=== PATIENT | male | born 1960 | race Caucasian/White ===

== ENCOUNTER 2016-07-01 09:51 | Emergency (ER) | payer OTHER ==
[~2016-07-01] VITALS: Ht 175.2 cm; Wt 84.4 kg
[~2016-07-01 09:51] MED LIST: ACYCLOVIR800 MG PO; ALBUTEROL0.09 MG/A2 IH; ALBUTEROL0.09 MG/A2 INH; ALBUTEROL2.5 MG/0.5 INH; ANAPROX DS550 MG PO; ASPIRIN325 MG PO; BENADRYL ALLERG25 M5 PO; BENADRYL25 MG PO; CATAPRES-TTS 10.1 MG PO; CLINDAMYCIN HC300 MG PO; EES400 MG PO; HYDRODIURIL25 MG PO; LOVASTATIN10 MG PO; NYSTATIN100000 U/M PO; PREDNICOT20 MG PO; PREDNISONE20 M1 PO; PROBIOTIC PO; PYRIDIUM200 MG PO; VIBRAMYCIN100 MG PO; VICODIN ES 7501 TAB PO; ZANTAC 150150 MG PO; ZITHROMAX250 MG PO; Zestril,Prinivi40 MG PO
[2016-07-01 10:20] LABS: BASO % 0.7 % (0.0-1.0); EOS # 0.1 10*3/uL (0.0-0.4); EOS % 0.9 % (1.0-4.0); HEMATOCRIT 47.2 % (42.0-52.0); HEMOGLOBIN 16.4 g/dl (14.0-18.0); LYMPH # 1.2 10*3/uL (1.3-4.4); MEAN CELL VOLUME 95.5 fl (80.0-94.0); MEAN CORPUSCULAR HGB 33.2 pg (27.0-31.0); MEAN CORPUSCULAR HGB CONC 34.7 g/dl (33.0-37.0); MEAN PLATELET VOLUME 10.2 fl (9.6-12.3); MONO # 0.4 10*3/uL (0.1-1.0); MONO % 7.6 % (3.0-9.0); NEUT # 3.8 10*3/uL (2.3-7.9); NEUT % 68.6 % (47.0-73.0); PLATELET COUNT AUTOMATED 142 10*3/uL (130-400); RED BLOOD COUNT 4.94 10*6/uL (4.50-5.90); RED CELL DISTRI WIDTH 12.8 % (0-14.5); WHITE BLOOD COUNT 5.5 10*3/uL (4.8-10.8)
[2016-07-01 10:31] LABS: PROTHROMBIN TIME 10.8 SECONDS (9.0-12.4)
[2016-07-01 10:35] LABS: ALBUMIN 4.3 gm/dl (3.1-4.5); ALKALINE PHOSPHATASE 83 U/L (45-117); BILIRUBIN, TOTAL 0.5 mg/dl (0.2-1.0); BUN 11 mg/dl (7-24); CARBON DIOXIDE 29 mmol/L (21-32); CHLORIDE 103 mmol/L (98-107); CPK 240 U/L (39-308); EST GLOM FILT AFRICAN AMERICAN > 60 ml/min; GLUCOSE 105 mg/dL (65-99); MAGNESIUM 2.3 mg/dL (1.5-2.1); POTASSIUM 4.2 mmol/L (3.5-5.1); SGOT/AST 37 IU/L (3-35); SGPT/ALT 59 U/L (12-78); SODIUM 142 mmol/L (136-145); TOTAL PROTEIN 7.7 gm/dL (6.4-8.2)
[2016-07-01 10:39] LABS: C-REACTIVE PROTEIN < 0.29 MG/DL (0-0.3); TROPONIN I < 0.015 ng/ml (<0.045)
== END 2016-07-01 12:12 | disposition left against medical advice (07) ==
LOC: ED 09:51
PROVIDERS: Student in an Organized Health Care Education/Training Program
DX: R55 Syncope and collapse (principal); R00.2 Palpitations; Z95.0 Presence of cardiac pacemaker; Z79.82 Long term (current) use of aspirin; Z88.1 Allergy status to other antibiotic agents; Z88.2 Allergy status to sulfonamides

== ENCOUNTER 2016-07-12 17:49 | Emergency (ER) | payer OTHER ==
[~2016-07-12] VITALS: Ht 175.2 cm; Wt 81.6 kg
--- NOTE | ~2016-07-12 | EKG ---
[place], [place] ELECTROCARDIOGRAM REPORT NAME: GALILEA COPE UNIT #: [id number] ROOM: DOCTOR: YAAKOV KNIGHT MD BIRTHDATE: [birth year] DOS: 07/12/2016 FINDINGS: 1. Normal sinus rhythm at rate 96. 2. Possible left atrial enlargement. 3. Lateral ST segment depression. 4. Abnormal electrocardiogram. YAAKOV KNIGHT MD CM:EKGRPT:ELECTROCARDIOGRAM REPORT [id number] 0000 YAAKOV KNIGHT MD
[2016-07-12] MEDS ORDERED: CATAPRES-TTS 10.1 MG PO (18:21)
[2016-07-12 18:40] LABS: BASO % 0.6 % (0.0-1.0); EOS # 0.1 10*3/uL (0.0-0.4); EOS % 1.4 % (1.0-4.0); HEMATOCRIT 48.3 % (42.0-52.0); HEMOGLOBIN 16.9 g/dl (14.0-18.0); LYMPH % 28.4 % (27.0-41.0); MEAN CELL VOLUME 94.9 fl (80.0-94.0); MEAN CORPUSCULAR HGB 33.2 pg (27.0-31.0); MEAN PLATELET VOLUME 10.5 fl (9.6-12.3); MONO # 0.5 10*3/uL (0.1-1.0); MONO % 7.5 % (3.0-9.0); NEUT # 4.5 10*3/uL (2.3-7.9); NEUT % 61.8 % (47.0-73.0); PLATELET COUNT AUTOMATED 177 10*3/uL (130-400); RED BLOOD COUNT 5.09 10*6/uL (4.50-5.90); RED CELL DISTRI WIDTH 12.6 % (0-14.5); WHITE BLOOD COUNT 7.2 10*3/uL (4.8-10.8)
[2016-07-12 18:48] LABS: PROTHROMBIN TIME 10.7 SECONDS (9.0-12.4)
[2016-07-12 18:56] LABS: ALBUMIN 4.1 gm/dl (3.1-4.5); ALKALINE PHOSPHATASE 77 U/L (45-117); BILIRUBIN, TOTAL 0.6 mg/dl (0.2-1.0); BUN 19 mg/dl (7-24); C-REACTIVE PROTEIN < 0.29 MG/DL (0-0.3); CARBON DIOXIDE 26 mmol/L (21-32); CHLORIDE 105 mmol/L (98-107); CPK 176 U/L (39-308); EST GLOM FILT AFRICAN AMERICAN > 60 ml/min; GLUCOSE 126 mg/dL (65-99); MAGNESIUM 2.5 mg/dL (1.5-2.1); POTASSIUM 3.4 mmol/L (3.5-5.1); SGOT/AST 31 IU/L (3-35); SGPT/ALT 55 U/L (12-78); SODIUM 142 mmol/L (136-145); TOTAL PROTEIN 7.3 gm/dL (6.4-8.2); TROPONIN I < 0.015 ng/ml (<0.045)
== END 2016-07-12 19:45 | disposition left against medical advice (07) ==
LOC: ED 17:49
PROVIDERS: Student in an Organized Health Care Education/Training Program
DX: R07.9 Chest pain, unspecified (principal); I10 Essential (primary) hypertension; Z88.1 Allergy status to other antibiotic agents; Z88.2 Allergy status to sulfonamides; Z79.82 Long term (current) use of aspirin; Z95.0 Presence of cardiac pacemaker

== ENCOUNTER → 2016-11-14 | Outpatient (CLI) | payer OTHER ==
[~2016-11-14] MED LIST changes: +CLONIDINE1 EAC1 T; +PROVENTIL HFA6.7 GM INH
--- NOTE | ~2016-11-14 | ST ---
[place], [place] EXERCISE STRESS TEST REPORT [id number] UN[facility] #: [id number] ROOM: DOCTOR: ZINA REVELES MD BIRTHDATE: [birth year] DOS: 11/14/2016 LEXISCAN PORTION OF THE LEXISCAN CARDIOLITE Baseline cardiogram, sinus rhythm with poor R-wave progression in the anterior leads with nonspecific ST-T changes, 0.4 mg Lexiscan, duration of 10 seconds. No new EKG changes with Lexiscan. No chest pain with Lexiscan. Mild ST depression is present in the inferior leads. Blood pressure and heart rate response was normal. Nuclear images will be reported separately. ZINA REVELES MD CM:STRESS:EXERCISE STRESS TEST REPORT [id number] ZINA REVELES MD
--- NOTE | 2016-11-14 07:00 | NUR ---
INFORMED CONSENT OBTAINED FOR LEXISCAN NUCLEAR STRESS TEST WITH DR. REVELES. RESTING EKG ATRIAL PACED WITH A RESTING HR OF 60 WITH BP OF 120/54. LUNGS CLEAR WITH SPO2 OF 99% ON ROOM AIR. PT COMPLETED A 1:00 LEXISCAN PROTOCOL RECEIVING LEXISCAN 0.4 MG IV OVER 10 SECONDS. HAD NO CHEST PAIN WITH NONDIAGNOSTIC ST CHANGES. HAD C/O "EXCITED FEELING" THAT SUBSIDED IN RECOVERY. HAD A PEAK HR OF 82 WITH BP OF 132/88. LAST RECOVERY HR OF 78 WITH BP OF 130/80. AWAITING SCANNING IN STABLE CONDITION.
== END | disposition home or self-care (01) ==
LOC: CARD 03:31
DX: R07.9 Chest pain, unspecified (principal); R53.81 Other malaise

== ENCOUNTER 2017-05-04 08:39 | Emergency (ER) | payer OTHER ==
[~2017-05-04] VITALS: Ht 175.2 cm; Wt 81.6 kg
[2017-05-04 09:33] LABS: BASO # 0.1 10*3/uL (0.0-0.1); BASO % 0.9 % (0.0-1.0); EOS # 0.1 10*3/uL (0.0-0.4); EOS % 1.4 % (1.0-4.0); HEMATOCRIT 47.3 % (42.0-52.0); HEMOGLOBIN 16.2 g/dl (14.0-18.0); LYMPH # 1.6 10*3/uL (1.3-4.4); LYMPH % 28.3 % (27.0-41.0); MEAN CELL VOLUME 95.9 fl (80.0-94.0); MEAN CORPUSCULAR HGB 32.9 pg (27.0-31.0); MEAN CORPUSCULAR HGB CONC 34.2 g/dl (33.0-37.0); MEAN PLATELET VOLUME 10.7 fl (9.6-12.3); MONO # 0.5 10*3/uL (0.1-1.0); MONO % 9.4 % (3.0-9.0); NEUT # 3.4 10*3/uL (2.3-7.9); NEUT % 59.8 % (47.0-73.0); PLATELET COUNT AUTOMATED 158 10*3/uL (130-400); RED BLOOD COUNT 4.93 10*6/uL (4.50-5.90); RED CELL DISTRI WIDTH 12.4 % (0-14.5); WHITE BLOOD COUNT 5.7 10*3/uL (4.8-10.8)
[2017-05-04 09:47] LABS: ACT PARTIAL THROMBO TIME 24.9 SECONDS (20.8-31.5)
[2017-05-04 09:50] LABS: ALBUMIN 3.8 gm/dl (3.1-4.5); ALKALINE PHOSPHATASE 74 U/L (45-117); BUN 20 mg/dl (7-24); CHLORIDE 105 mmol/L (98-107); CREATININE 0.88 mg/dL (0.70-1.30); LIPASE 210 U/L (73-393); SGOT/AST 21 IU/L (3-35); SGPT/ALT 38 U/L (12-78); SODIUM 140 mmol/L (136-145); TOTAL PROTEIN 7.2 gm/dL (6.4-8.2)
[2017-05-04 09:52] LABS: TROPONIN I < 0.015 ng/ml (<0.045)
== END 2017-05-04 11:38 | disposition left against medical advice (07) ==
LOC: ED 08:39
PROVIDERS: Emergency Medicine
DX: R00.2 Palpitations (principal); I10 Essential (primary) hypertension; Z88.1 Allergy status to other antibiotic agents; Z88.2 Allergy status to sulfonamides; Z88.8 Allergy status to other drugs, medicaments and biological substances; Z79.82 Long term (current) use of aspirin; Z79.899 Other long term (current) drug therapy

== ENCOUNTER 2017-05-08 19:04 | Inpatient (IN) | payer OTHER ==
[~2017-05-08] VITALS: Ht 175.2 cm; Wt 83.5 kg
[2017-05-08 19:13] VITALS: BP 147/82
[2017-05-08 19:28] LABS: BASO # 0.1 10*3/uL (0.0-0.1); BASO % 0.6 % (0.0-1.0); EOS # 0.1 10*3/uL (0.0-0.4); EOS % 1.2 % (1.0-4.0); HEMATOCRIT 47.8 % (42.0-52.0); HEMOGLOBIN 16.2 g/dl (14.0-18.0); LYMPH # 2.7 10*3/uL (1.3-4.4); LYMPH % 32.2 % (27.0-41.0); MEAN CELL VOLUME 95.2 fl (80.0-94.0); MEAN CORPUSCULAR HGB 32.3 pg (27.0-31.0); MEAN CORPUSCULAR HGB CONC 33.9 g/dl (33.0-37.0); MEAN PLATELET VOLUME 10.6 fl (9.6-12.3); MONO # 0.6 10*3/uL (0.1-1.0); MONO % 7.5 % (3.0-9.0); NEUT # 4.9 10*3/uL (2.3-7.9); NEUT % 58.4 % (47.0-73.0); PLATELET COUNT AUTOMATED 171 10*3/uL (130-400); RED BLOOD COUNT 5.02 10*6/uL (4.50-5.90); RED CELL DISTRI WIDTH 12.2 % (0-14.5); WHITE BLOOD COUNT 8.4 10*3/uL (4.8-10.8)
[2017-05-08 19:40] LABS: ACT PARTIAL THROMBO TIME 25.4 SECONDS (20.8-31.5)
[2017-05-08 19:45] VITALS: BP 128/82
[2017-05-08 19:48] LABS: ALBUMIN 3.9 gm/dl (3.1-4.5); ALKALINE PHOSPHATASE 75 U/L (45-117); BUN 19 mg/dl (7-24); CHLORIDE 103 mmol/L (98-107); CREATININE 1.43 mg/dL (0.70-1.30); POTASSIUM 4.1 mmol/L (3.5-5.1); SGOT/AST 26 IU/L (3-35); SGPT/ALT 45 U/L (12-78); SODIUM 140 mmol/L (136-145); TOTAL PROTEIN 7.2 gm/dL (6.4-8.2)
[2017-05-08 19:49] LABS: TROPONIN I < 0.015 ng/ml (<0.045)
[2017-05-08 20:16] VITALS: BP 122/72
[2017-05-08 21:00] VITALS: BP 170/88
[2017-05-09] VITALS: BP 125/93
[2017-05-09 04:36] LABS: BASO % 0.7 % (0.0-1.0); EOS # 0.1 10*3/uL (0.0-0.4); EOS % 2.3 % (1.0-4.0); HEMOGLOBIN 14.9 g/dl (14.0-18.0); LYMPH # 2.1 10*3/uL (1.3-4.4); LYMPH % 38.1 % (27.0-41.0); MEAN CELL VOLUME 95.9 fl (80.0-94.0); MEAN CORPUSCULAR HGB 32.5 pg (27.0-31.0); MEAN CORPUSCULAR HGB CONC 33.9 g/dl (33.0-37.0); MEAN PLATELET VOLUME 10.6 fl (9.6-12.3); MONO # 0.5 10*3/uL (0.1-1.0); MONO % 8.6 % (3.0-9.0); NEUT # 2.8 10*3/uL (2.3-7.9); NEUT % 50.1 % (47.0-73.0); PLATELET COUNT AUTOMATED 137 10*3/uL (130-400); RED BLOOD COUNT 4.59 10*6/uL (4.50-5.90); RED CELL DISTRI WIDTH 12.3 % (0-14.5); WHITE BLOOD COUNT 5.6 10*3/uL (4.8-10.8)
[2017-05-09 05:07] LABS: ALBUMIN 3.4 gm/dl (3.1-4.5); ALKALINE PHOSPHATASE 65 U/L (45-117); BUN 18 mg/dl (7-24); CHLORIDE 105 mmol/L (98-107); CHOLESTEROL 172 mg/dL (<200); CREATININE 0.99 mg/dL (0.70-1.30); HDL CHOLESTEROL 42 mg/dl (40-60); LDL CHOLESTEROL 112 mg/dL (9-159); POTASSIUM 3.9 mmol/L (3.5-5.1); SGOT/AST 23 IU/L (3-35); SGPT/ALT 41 U/L (12-78); SODIUM 143 mmol/L (136-145); TOTAL PROTEIN 6.1 gm/dL (6.4-8.2); TRIGLYCERIDES 89 mg/dl (<150); VLDL CHOLESTEROL 18 mg/dL (6-40)
== END 2017-05-09 05:43 | disposition left against medical advice (07) | DRG 308 ==
LOC: ED 19:04 → 5E 19:59 → EDHOLD 19:59 → 5E 20:21
PROVIDERS: Family Medicine Adult Medicine; Student in an Organized Health Care Education/Training Program
DX: R00.2 Palpitations (principal); N17.0 Acute kidney failure with tubular necrosis; I44.2 Atrioventricular block, complete; K57.50 Diverticulosis of both small and large intestine without perforation or abscess without bleeding; R58 Hemorrhage, not elsewhere classified; I10 Essential (primary) hypertension; E78.00 Pure hypercholesterolemia, unspecified; Z53.21 Procedure and treatment not carried out due to patient leaving prior to being seen by health care provider; E83.41 Hypermagnesemia; J45.30 Mild persistent asthma, uncomplicated; E66.3 Overweight; Z68.27 Body mass index [BMI] 27.0-27.9, adult; Z88.1 Allergy status to other antibiotic agents; Z88.2 Allergy status to sulfonamides; Z88.8 Allergy status to other drugs, medicaments and biological substances; Z95.0 Presence of cardiac pacemaker; Z79.82 Long term (current) use of aspirin; Z79.51 Long term (current) use of inhaled steroids; Z79.899 Other long term (current) drug therapy

== ENCOUNTER 2017-07-21 17:09 | Emergency (ER) | payer OTHER ==
[~2017-07-21] VITALS: Wt 84.8 kg
[2017-07-21 17:40] LABS: BASO % 0.6 % (0.0-1.0); EOS # 0.1 10*3/uL (0.0-0.4); EOS % 1.5 % (1.0-4.0); HEMATOCRIT 44.6 % (42.0-52.0); HEMOGLOBIN 14.9 g/dl (14.0-18.0); LYMPH # 1.4 10*3/uL (1.3-4.4); LYMPH % 27.3 % (27.0-41.0); MEAN CORPUSCULAR HGB 32.4 pg (27.0-31.0); MEAN CORPUSCULAR HGB CONC 33.4 g/dl (33.0-37.0); MEAN PLATELET VOLUME 10.8 fl (9.6-12.3); MONO # 0.5 10*3/uL (0.1-1.0); NEUT # 3.2 10*3/uL (2.3-7.9); NEUT % 61.4 % (47.0-73.0); PLATELET COUNT AUTOMATED 134 10*3/uL (130-400); RED CELL DISTRI WIDTH 13.2 % (0-14.5); WHITE BLOOD COUNT 5.2 10*3/uL (4.8-10.8)
[2017-07-21 17:49] LABS: ACT PARTIAL THROMBO TIME 25.3 SECONDS (20.8-31.5)
[2017-07-21 17:58] LABS: ALBUMIN 3.9 gm/dl (3.1-4.5); ALKALINE PHOSPHATASE 74 U/L (45-117); BUN 18 mg/dl (7-24); CHLORIDE 108 mmol/L (98-107); CREATININE 0.95 mg/dL (0.70-1.30); POTASSIUM 3.8 mmol/L (3.5-5.1); SGOT/AST 22 IU/L (3-35); SGPT/ALT 42 U/L (12-78); SODIUM 139 mmol/L (136-145); TOTAL PROTEIN 6.9 gm/dL (6.4-8.2)
[2017-07-21 18:02] LABS: TROPONIN I < 0.015 ng/ml (<0.045)
== END 2017-07-21 18:51 | disposition home or self-care (01) ==
LOC: ED 17:09
PROVIDERS: Nurse Practitioner Family
DX: R51 Headache (principal); J45.909 Unspecified asthma, uncomplicated; I10 Essential (primary) hypertension; E78.00 Pure hypercholesterolemia, unspecified; E66.3 Overweight; Z68.29 Body mass index [BMI] 29.0-29.9, adult; Z95.0 Presence of cardiac pacemaker; Z79.82 Long term (current) use of aspirin; Z87.891 Personal history of nicotine dependence; Z79.899 Other long term (current) drug therapy; Z88.1 Allergy status to other antibiotic agents; Z88.8 Allergy status to other drugs, medicaments and biological substances

== ENCOUNTER → 2017-08-17 | Outpatient (CLI) | payer OTHER | END | disposition home or self-care (01) | LOC: US 08-15 14:00 | DX: I10 Essential (primary) hypertension (principal) ==

== ENCOUNTER 2017-08-19 21:11 | Emergency (ER) | payer OTHER ==
[~2017-08-19] VITALS: Ht 175.2 cm; Wt 81.6 kg
[2017-08-19 21:45] LABS: HEMOGLOBIN 15.3 g/dl (14.0-18.0); MEAN CELL VOLUME 96.8 fl (80.0-94.0); MEAN CORPUSCULAR HGB 32.9 pg (27.0-31.0); MEAN PLATELET VOLUME 10.8 fl (9.6-12.3); PLATELET COUNT AUTOMATED 148 10*3/uL (130-400); RED BLOOD COUNT 4.65 10*6/uL (4.50-5.90); RED CELL DISTRI WIDTH 13.2 % (0-14.5); WHITE BLOOD COUNT 6.3 10*3/uL (4.8-10.8)
[2017-08-19 21:53] LABS: INTERNATIONAL NORM RATIO 0.9 (2.0-3.5)
[2017-08-19 22:08] LABS: ALBUMIN 3.6 gm/dl (3.1-4.5); ALKALINE PHOSPHATASE 80 U/L (45-117); BUN 15 mg/dl (7-24); CHLORIDE 104 mmol/L (98-107); CREATININE 0.91 mg/dL (0.70-1.30); POTASSIUM 3.7 mmol/L (3.5-5.1); SGOT/AST 23 IU/L (3-35); SGPT/ALT 39 U/L (12-78); SODIUM 141 mmol/L (136-145); TOTAL PROTEIN 6.7 gm/dL (6.4-8.2)
[2017-08-19 22:09] LABS: TROPONIN I < 0.015 ng/ml (<0.045)
[2017-08-19 22:20] LABS: ATYPICAL LYMPHS 3 % (0-0); TOTAL CELLS COUNTED 100 #CELLS
[2017-08-19 22:21] LABS: PLATELET SUFFICIENCY LOW (NORMAL); POLYCHROMASIA SLIGHT
== END 2017-08-20 01:11 | disposition home or self-care (01) ==
LOC: ED 21:11
PROVIDERS: Emergency Medicine
DX: S29.012A Strain of muscle and tendon of back wall of thorax, initial encounter (principal); J45.909 Unspecified asthma, uncomplicated; E78.00 Pure hypercholesterolemia, unspecified; I10 Essential (primary) hypertension; E66.3 Overweight; Z68.29 Body mass index [BMI] 29.0-29.9, adult; Z95.0 Presence of cardiac pacemaker; Z87.891 Personal history of nicotine dependence; Z79.82 Long term (current) use of aspirin; Z79.899 Other long term (current) drug therapy; Z88.1 Allergy status to other antibiotic agents; Z88.8 Allergy status to other drugs, medicaments and biological substances; X58.XXXA Exposure to other specified factors, initial encounter; Y93.89 Activity, other specified; Y92.89 Other specified places as the place of occurrence of the external cause; Y99.9 Unspecified external cause status

== ENCOUNTER → 2017-08-22 | Outpatient (CLI) | payer OTHER | LOC: US 08:01 | DX: I10 Essential (primary) hypertension (principal) ==

== ENCOUNTER 2017-10-24 06:11 | Emergency (ER) | payer OTHER ==
[~2017-10-24] VITALS: Ht 175.2 cm; Wt 81.2 kg
[2017-10-24] MEDS ORDERED: ASPIR LOW81 MG PO (06:18)
[2017-10-24] MEDS ORDERED: B12,B-12,B 12500 MC1 PO (06:25)
[2017-10-24] MEDS ORDERED: GARLIC1000 M1 PO (06:27)
[2017-10-24] MEDS ORDERED: FISH OIL CONC1000 M2 PO (06:28)
[2017-10-24] MEDS ORDERED: BENADRYL ALLERG25 M5 PO (07:10)
== END 2017-10-24 08:28 | disposition home or self-care (01) ==
LOC: ED 06:11
DX: T63.441A Toxic effect of venom of bees, accidental (unintentional), initial encounter (principal); M79.89 Other specified soft tissue disorders; I10 Essential (primary) hypertension; E78.00 Pure hypercholesterolemia, unspecified; Z87.891 Personal history of nicotine dependence; Z88.1 Allergy status to other antibiotic agents; Z88.8 Allergy status to other drugs, medicaments and biological substances; Z79.899 Other long term (current) drug therapy; Z79.82 Long term (current) use of aspirin; Y92.89 Other specified places as the place of occurrence of the external cause

== ENCOUNTER 2017-10-29 07:22 | Emergency (ER) | payer OTHER ==
[~2017-10-29] VITALS: Ht 175.2 cm; Wt 81.2 kg
[~2017-10-29 07:22] MED LIST changes: +ASPIR LOW81 MG PO; +B12,B-12,B 12500 MC1 PO; +FISH OIL CONC1000 M2 PO; +GARLIC1000 M1 PO
[2017-10-29] MEDS ORDERED: MEDROL DOSEPAK4 MG PO (07:44)
[2017-10-29] MEDS ORDERED: PEPCID20 MG PO (07:44)
== END 2017-10-29 08:30 | disposition home or self-care (01) ==
LOC: ED 07:22
DX: K14.8 Other diseases of tongue (principal); T78.3XXA Angioneurotic edema, initial encounter; J45.909 Unspecified asthma, uncomplicated; I10 Essential (primary) hypertension; E66.3 Overweight; Z68.29 Body mass index [BMI] 29.0-29.9, adult; Z95.0 Presence of cardiac pacemaker; Z87.891 Personal history of nicotine dependence; Z79.899 Other long term (current) drug therapy; Z79.82 Long term (current) use of aspirin; Z88.1 Allergy status to other antibiotic agents; Z88.3 Allergy status to other anti-infective agents; Z88.8 Allergy status to other drugs, medicaments and biological substances; Y92.9 Unspecified place or not applicable

== ENCOUNTER 2017-11-27 20:12 | Emergency (ER) | payer OTHER ==
[~2017-11-27] VITALS: Ht 175.2 cm; Wt 84.4 kg
--- NOTE | ~2017-11-27 | EKG ---
[place], [place] ELECTROCARDIOGRAM REPORT NAME: GALILEA COPE UNIT #: [id number] ROOM: DOCTOR: EPIPHANY DRAFT REPORT BIRTHDATE: [birth year] [facility] Test Date: 2017-11-27 Test Time: 20:31:46 Pat Name: GALILEA COPE Department: Room: Gender: Tariff Clerk: Carolyn Hernández : 1960 Requested By: GABRIEL VALENTIN Order Number: [id number] Reading MD: Adela Inman MD Measurements Intervals [place] Rate: 71 P: 13 [place]: 183 QRS: 57 QRSD: 89 T: 79 QT: 378 QTc: 411 Interpretive Statements Sinus rhythm Electronically Signed On 11-28-2017 13:45:01 PDT by Adela Inman MD CM:EKGRPT:ELECTROCARDIOGRAM REPORT 30 1345 GABRIEL VALENTIN EPIPHANY DRAFT REPORT GABRIEL VALENTIN
[~2017-11-27 20:12] MED LIST changes: +MEDROL DOSEPAK4 MG PO; +PEPCID20 MG PO
[2017-11-27 20:38] LABS: BASO % 0.3 % (0.0-1.0); EOS # 0.1 10*3/uL (0.0-0.4); EOS % 0.9 % (1.0-4.0); HEMATOCRIT 45.9 % (42.0-52.0); HEMOGLOBIN 15.4 g/dl (14.0-18.0); LYMPH # 1.7 10*3/uL (1.3-4.4); LYMPH % 25.7 % (27.0-41.0); MEAN CELL VOLUME 97.9 fl (80.0-94.0); MEAN CORPUSCULAR HGB 32.8 pg (27.0-31.0); MEAN CORPUSCULAR HGB CONC 33.6 g/dl (33.0-37.0); MEAN PLATELET VOLUME 10.6 fl (9.6-12.3); MONO # 0.5 10*3/uL (0.1-1.0); MONO % 7.9 % (3.0-9.0); NEUT # 4.2 10*3/uL (2.3-7.9); NEUT % 64.9 % (47.0-73.0); PLATELET COUNT AUTOMATED 144 10*3/uL (130-400); RED BLOOD COUNT 4.69 10*6/uL (4.50-5.90); RED CELL DISTRI WIDTH 12.9 % (0-14.5); WHITE BLOOD COUNT 6.5 10*3/uL (4.8-10.8)
[2017-11-27 20:54] LABS: BILIRUBIN NEGATIVE (NEGATIVE); BLOOD NEGATIVE (NEGATIVE); CLARITY CLEAR (CLEAR); COLOR YELLOW (YELLOW); GLUCOSE NEGATIVE (NEGATIVE); KETONE TRACE (NEGATIVE); LEUKO ESTERASE NEGATIVE (NEGATIVE); NITRITE NEGATIVE (NEGATIVE); SPECIFIC GRAVITY <= 1.005 (1.005-1.030); UROBILINOGEN 0.2 E.U./dl (0.2-1.0)
[2017-11-27 20:56] LABS: ALBUMIN 4.1 gm/dl (3.1-4.5); BUN 13 mg/dl (7-24); CHLORIDE 105 mmol/L (98-107); CREATININE 0.96 mg/dL (0.70-1.30); POTASSIUM 3.9 mmol/L (3.5-5.1); SGOT/AST 25 IU/L (3-35); SGPT/ALT 38 U/L (12-78); SODIUM 139 mmol/L (136-145); TOTAL PROTEIN 7.4 gm/dL (6.4-8.2)
[2017-11-27 20:58] LABS: ALKALINE PHOSPHATASE 63 U/L (45-117)
[2017-11-27 21:00] LABS: ACT PARTIAL THROMBO TIME 24.6 SECONDS (20.8-31.5)
[2017-11-27 21:01] LABS: TROPONIN I < 0.015 ng/ml (<0.045)
[2017-11-27 21:28] LABS: WBC 0-2 wbc/hpf (0-5)
== END 2017-11-27 21:49 | disposition left against medical advice (07) ==
LOC: ED 20:12
PROVIDERS: Nurse Practitioner Family
DX: R07.9 Chest pain, unspecified (principal); R51 Headache; Z88.1 Allergy status to other antibiotic agents; Z88.5 Allergy status to narcotic agent; Z88.2 Allergy status to sulfonamides; Z79.82 Long term (current) use of aspirin; Z79.899 Other long term (current) drug therapy

== ENCOUNTER 2017-12-20 23:54 | Inpatient (IN) | payer OTHER ==
[~2017-12-20] VITALS: Ht 175.2 cm; Wt 80.3 kg
--- NOTE | ~2017-12-20 | EKG ---
[place], [place] ELECTROCARDIOGRAM REPORT NAME: GALILEA COPE UNIT #: [id number] ROOM: [facility] DOCTOR: CHERYL DRAFT REPORT BIRTHDATE: [birth year] [facility] Test Date: 2017-12-21 Test Time: 02:51:03 Pat Name: GALILEA COPE Department: Room: [facility] Gender: M Echo Technologist: : 1960 Requested By: PRIMO GUTIERREZ Order Number: [id number] Reading MD: Sukhdeep James MD Measurements Intervals [place] Rate: 61 P: [place]: 208 QRS: 59 QRSD: 89 T: 76 QT: 396 QTc: 399 Interpretive Statements Atrial-paced rhythm Baseline wander in lead(s) I,II,aVR Compared to ECG 11/27/2017 20:31:46 Sinus rhythm no longer present Electronically Signed On 12-23-2017 4:08:52 PDT by Sukhdeep James MD CM:EKGRPT:ELECTROCARDIOGRAM REPORT [id number] 0408 PRIMO GUTIERREZ MD EPIPHANY DRAFT REPORT PRIMO GUTIERREZ MD
--- NOTE | ~2017-12-20 | EKG ---
[place], [place] ELECTROCARDIOGRAM REPORT NAME: GALILEA COPE UNIT #: [id number] ROOM: [facility] DOCTOR: EPIPHANY DRAFT REPORT BIRTHDATE: [birth year] [facility] Test Date: 2017-12-21 Test Time: 06:50:59 Pat Name: GALILEA COPE Department: Room: [facility] Gender: M Salt Maker: Deb Ray : 1960 Requested By: PRIMO GUTIERREZ Order Number: [id number] Reading MD: Sukhdeep James MD Measurements Intervals [place] Rate: 63 P: [place]: 190 QRS: 84 QRSD: 91 T: 47 QT: 402 QTc: 412 Interpretive Statements Atrial-paced rhythm Low voltage, extremity leads Anteroseptal infarct, old Compared to ECG 11/27/2017 20:31:46 Low QRS voltage now present Myocardial infarct finding now present Sinus rhythm no longer present Electronically Signed On 12-23-2017 4:09:06 PDT by Sukhdeep James MD CM:EKGRPT:ELECTROCARDIOGRAM REPORT [id number] 0409 PRIMO GUTIERREZ MD EPIPHANY DRAFT REPORT PRIMO GUTIERREZ MD
--- NOTE | ~2017-12-20 | EKG ---
[place], [place] ELECTROCARDIOGRAM REPORT NAME: GALILEA COPE UNIT #: [id number] ROOM: [facility] DOCTOR: SURESHANY DRAFT REPORT BIRTHDATE: [birth year] [facility] Test Date: 2017-12-20 Test Time: 23:55:45 Pat Name: GALILEA COPE Department: Room: [facility] Gender: M Strip Picker: : 1960 Requested By: PRIMO GUTIERREZ Order Number: [id number] Reading MD: Sukhdeep James MD Measurements Intervals [place] Rate: 72 P: [place]: 183 QRS: 55 QRSD: 91 T: 56 QT: 366 QTc: 401 Interpretive Statements sinys Sinus rhythm Anteroseptal infarct, old Compared to ECG 11/27/2017 20:31:46 Myocardial infarct finding now present Sinus rhythm no longer present Electronically Signed On 12-23-2017 4:08:40 PDT by Sukhdeep James MD CM:EKGRPT:ELECTROCARDIOGRAM REPORT [id number] PRIMO GUTIERREZ MD EPIPHANY DRAFT REPORT PRIMO GUTIERREZ MD
[2017-12-20 23:55] VITALS: BP 132/87
[2017-12-21] MEDS ORDERED: FUROSEMIDE20 M1 PO (00:16)
[2017-12-21] MEDS ORDERED: 'CLONIDINE0.1 MG PO (00:16)
[2017-12-21] MEDS ORDERED: VITAMIN B121000 MC1 SL (00:17)
[2017-12-21] MEDS ORDERED: FISH OIL 1,0001 EAC4 PO (00:18)
[2017-12-21] MEDS ORDERED: ZYRTEC10 MG PO (00:18)
[2017-12-21] MEDS ORDERED: ODORLESS GARLI300 MG PO (00:18)
[2017-12-21 00:21] LABS: BASO % 0.8 % (0.0-1.0); EOS # 0.1 10*3/uL (0.0-0.4); HEMATOCRIT 43.1 % (42.0-52.0); HEMOGLOBIN 14.9 g/dl (14.0-18.0); LYMPH # 1.7 10*3/uL (1.3-4.4); LYMPH % 35.7 % (27.0-41.0); MEAN CELL VOLUME 96.9 fl (80.0-94.0); MEAN CORPUSCULAR HGB 33.5 pg (27.0-31.0); MEAN CORPUSCULAR HGB CONC 34.6 g/dl (33.0-37.0); MEAN PLATELET VOLUME 10.7 fl (9.6-12.3); MONO # 0.4 10*3/uL (0.1-1.0); MONO % 8.9 % (3.0-9.0); NEUT # 2.4 10*3/uL (2.3-7.9); NEUT % 51.2 % (47.0-73.0); PLATELET COUNT AUTOMATED 137 10*3/uL (130-400); RED BLOOD COUNT 4.45 10*6/uL (4.50-5.90); RED CELL DISTRI WIDTH 12.8 % (0-14.5); WHITE BLOOD COUNT 4.7 10*3/uL (4.8-10.8)
[2017-12-21 00:30] LABS: ACT PARTIAL THROMBO TIME 25.5 SECONDS (20.8-31.5)
[2017-12-21 00:33] VITALS: BP 1110/79
[2017-12-21 00:37] LABS: ALBUMIN 3.9 gm/dl (3.1-4.5); ALKALINE PHOSPHATASE 67 U/L (45-117); BUN 10 mg/dl (7-24); CHLORIDE 106 mmol/L (98-107); CREATININE 0.85 mg/dL (0.70-1.30); POTASSIUM 3.7 mmol/L (3.5-5.1); SGOT/AST 22 IU/L (3-35); SGPT/ALT 34 U/L (12-78); SODIUM 141 mmol/L (136-145); TOTAL PROTEIN 6.6 gm/dL (6.4-8.2)
[2017-12-21 00:38] LABS: TROPONIN I < 0.015 ng/ml (<0.045)
[2017-12-21 01:56] VITALS: BP 112/80; BP 118/68; BP 138/96
[2017-12-21] MEDS ORDERED: VITAMIN C500 M4 PO (02:43)
[2017-12-21 06:22] LABS: ALBUMIN 3.6 gm/dl (3.1-4.5); ALKALINE PHOSPHATASE 64 U/L (45-117); BUN 10 mg/dl (7-24); CHLORIDE 108 mmol/L (98-107); CHOLESTEROL 178 mg/dL (<200); CREATININE 0.82 mg/dL (0.70-1.30); HDL CHOLESTEROL 46 mg/dl (40-60); LDL CHOLESTEROL 117 mg/dL (9-159); PHOSPHOROUS 3.8 mg/dL (2.5-4.9); POTASSIUM 3.9 mmol/L (3.5-5.1); SGOT/AST 21 IU/L (3-35); SGPT/ALT 32 U/L (12-78); SODIUM 143 mmol/L (136-145); TOTAL PROTEIN 6.3 gm/dL (6.4-8.2); TRIGLYCERIDES 75 mg/dl (<150); VLDL CHOLESTEROL 15 mg/dL (6-40)
[2017-12-21 06:26] LABS: BASO % 0.9 % (0.0-1.0); EOS # 0.1 10*3/uL (0.0-0.4); EOS % 2.8 % (1.0-4.0); HEMATOCRIT 44.2 % (42.0-52.0); HEMOGLOBIN 14.8 g/dl (14.0-18.0); LYMPH # 1.7 10*3/uL (1.3-4.4); LYMPH % 36.1 % (27.0-41.0); MEAN CELL VOLUME 98.9 fl (80.0-94.0); MEAN CORPUSCULAR HGB 33.1 pg (27.0-31.0); MEAN CORPUSCULAR HGB CONC 33.5 g/dl (33.0-37.0); MEAN PLATELET VOLUME 11.1 fl (9.6-12.3); MONO # 0.4 10*3/uL (0.1-1.0); MONO % 9.1 % (3.0-9.0); NEUT # 2.4 10*3/uL (2.3-7.9); NEUT % 50.9 % (47.0-73.0); PLATELET COUNT AUTOMATED 145 10*3/uL (130-400); RED BLOOD COUNT 4.47 10*6/uL (4.50-5.90); RED CELL DISTRI WIDTH 12.8 % (0-14.5); WHITE BLOOD COUNT 4.6 10*3/uL (4.8-10.8)
[2017-12-21 07:28] LABS: VITAMIN D, 25-HYDROXY 31.1 ng/mL (30-100)
== END 2017-12-21 07:00 | disposition left against medical advice (07) | DRG 313 ==
LOC: ED 23:54 → EDHOLD 12-21 01:32 → 5E 12-21 01:37
PROVIDERS: Emergency Medicine Emergency Medical Services; Internal Medicine
DX: R07.9 Chest pain, unspecified (principal); I44.2 Atrioventricular block, complete; Z68.26 Body mass index [BMI] 26.0-26.9, adult; E78.00 Pure hypercholesterolemia, unspecified; I10 Essential (primary) hypertension; J45.20 Mild intermittent asthma, uncomplicated; E66.3 Overweight; E53.8 Deficiency of other specified B group vitamins; D75.89 Other specified diseases of blood and blood-forming organs; K57.90 Diverticulosis of intestine, part unspecified, without perforation or abscess without bleeding; E78.5 Hyperlipidemia, unspecified; Z53.21 Procedure and treatment not carried out due to patient leaving prior to being seen by health care provider; E83.41 Hypermagnesemia; R73.9 Hyperglycemia, unspecified; Z60.2 Problems related to living alone; Z88.8 Allergy status to other drugs, medicaments and biological substances; Z88.2 Allergy status to sulfonamides; Z79.899 Other long term (current) drug therapy; Z87.891 Personal history of nicotine dependence; Z95.0 Presence of cardiac pacemaker; Z79.82 Long term (current) use of aspirin; Z85.828 Personal history of other malignant neoplasm of skin; Z82.49 Family history of ischemic heart disease and other diseases of the circulatory system; Z83.3 Family history of diabetes mellitus; Z80.8 Family history of malignant neoplasm of other organs or systems

== ENCOUNTER → 2018-02-13 | Outpatient (CLI) | payer OTHER ==
[~2018-02-13] MED LIST changes: +'CLONIDINE0.1 MG PO; +FISH OIL 1,0001 EAC4 PO; +FUROSEMIDE20 M1 PO; +ODORLESS GARLI300 MG PO; +VITAMIN B121000 MC1 SL; +VITAMIN C500 M4 PO; +ZYRTEC10 MG PO
== END | disposition home or self-care (01) ==
LOC: D 14:45
DX: I10 Essential (primary) hypertension (principal); E78.5 Hyperlipidemia, unspecified

== ENCOUNTER 2018-04-07 16:42 | Emergency (ER) | payer OTHER ==
[~2018-04-07] VITALS: Ht 175.2 cm; Wt 79.4 kg
--- NOTE | ~2018-04-07 | EKG ---
[place], [place] ELECTROCARDIOGRAM REPORT NAME: GALILEA COPE UNIT #: [id number] ROOM: DOCTOR: EPIPHANY DRAFT REPORT BIRTHDATE: [birth year] [facility] Test Date: 2018-04-07 Test Time: 16:42:22 Pat Name: GALILEA COPE Department: Room: [facility] Gender: M Residential Mental Health Worker: Nuha Patel : 1960 Requested By: CHAVA BARKER Order Number: [id number] Reading MD: Sukhdeep James MD Measurements Intervals [place] Rate: 80 P: 52 [place]: 184 QRS: 71 QRSD: 93 T: 93 QT: 358 QTc: 413 Interpretive Statements Sinus rhythm Probable left atrial enlargement Anteroseptal infarct, old Nonspecific T abnormalities, lateral leads Compared to ECG 12/21/2017 06:50:59 T-wave abnormality now present Atrial-paced complex(es) or rhythm no longer present Ventricular-paced complex(es) or rhythm no longer present Myocardial infarct finding still present Electronically Signed On 04-08-2018 9:26:48 PST by Sukhdeep James MD CM:EKGRPT:ELECTROCARDIOGRAM REPORT [id number] 0926 CHAVA LUNA DRAFT REPORT CHAVA BARKER M.D.
[2018-04-07 17:13] LABS: BASO % 0.6 % (0.0-1.0); EOS # 0.1 10*3/uL (0.0-0.4); EOS % 1.4 % (1.0-4.0); HEMATOCRIT 47.3 % (42.0-52.0); LYMPH # 1.8 10*3/uL (1.3-4.4); LYMPH % 25.7 % (27.0-41.0); MEAN CELL VOLUME 97.5 fl (80.0-94.0); MEAN CORPUSCULAR HGB CONC 33.8 g/dl (33.0-37.0); MEAN PLATELET VOLUME 10.2 fl (9.6-12.3); MONO # 0.7 10*3/uL (0.1-1.0); MONO % 9.3 % (3.0-9.0); NEUT # 4.5 10*3/uL (2.3-7.9); NEUT % 62.9 % (47.0-73.0); PLATELET COUNT AUTOMATED 148 10*3/uL (130-400); RED BLOOD COUNT 4.85 10*6/uL (4.50-5.90); WHITE BLOOD COUNT 7.1 10*3/uL (4.8-10.8)
[2018-04-07 17:35] LABS: ALBUMIN 3.9 gm/dl (3.1-4.5); ALKALINE PHOSPHATASE 68 U/L (45-117); BUN 13 mg/dl (7-24); CHLORIDE 107 mmol/L (98-107); CREATININE 0.92 mg/dL (0.70-1.30); SGOT/AST 32 IU/L (3-35); SGPT/ALT 48 U/L (12-78); SODIUM 139 mmol/L (136-145); TOTAL PROTEIN 6.9 gm/dL (6.4-8.2)
[2018-04-07 17:37] LABS: TROPONIN I < 0.015 ng/ml (<0.045)
== END 2018-04-07 18:14 | disposition home or self-care (01) ==
LOC: ED 16:42
PROVIDERS: Family Medicine
DX: R00.2 Palpitations (principal); R51 Headache; M79.602 Pain in left arm; J45.909 Unspecified asthma, uncomplicated; E78.00 Pure hypercholesterolemia, unspecified; I10 Essential (primary) hypertension; Z95.0 Presence of cardiac pacemaker; Z87.891 Personal history of nicotine dependence; Z88.8 Allergy status to other drugs, medicaments and biological substances; Z88.1 Allergy status to other antibiotic agents; Z88.2 Allergy status to sulfonamides

== ENCOUNTER → 2018-04-08 | Outpatient (CLI) | payer OTHER ==
--- NOTE | ~2018-04-08 | HM ---
[place], [place] HOLTER MONITOR REPORT NAME: GALILEA COPE UNIT #: [id number] ROOM: DOCTOR: ABDIRIZAK CAR,ZINA BIRTHDATE: [birth year] DOS: HOLTER MONITOR: The patient referred for the Holter monitor because of palpitations. The patient remained in sinus rhythm throughout the entire period. Minimum heart rate is 59, average heart rate is 71, and maximum heart rate is 125 beats per minute. The patient did not have any significant dysrhythmia. Isolated PVCs are present. Short run of atrial tachycardia, which is about 6 beats. Rate is like 125 beats per minute. There are some ST-T depression is present. FINAL IMPRESSION: Grossly normal Holter monitor with few episodes of atrial tachycardia. No ventricular or supraventricular dysrhythmia other than a short run of atrial tachycardia. Isolated PVCs. No significant pauses. ZINA REVELES MD CM:HOLTER:HOLTER MONITOR REPORT [id number] 1451 ZINA REVELES MD
== END | disposition home or self-care (01) ==
LOC: CARD 10:39
DX: R00.2 Palpitations (principal)

== ENCOUNTER 2018-05-17 18:30 | Emergency (ER) | payer OTHER ==
[~2018-05-17] VITALS: Ht 175.2 cm; Wt 77.1 kg
[2018-05-17] MEDS ORDERED: ZITHROMAX250 MG PO (20:21)
[2018-10-15] MEDS ORDERED: B12,B-12,B 12500 MC1 PO (05:46)
[2018-10-15] MEDS ORDERED: VIT C PO (05:46)
[2018-10-15] MEDS ORDERED: GARLIC1000 M1 PO (05:47)
[2018-10-15] MEDS ORDERED: FISH OIL 1,0001 EAC4 PO (05:47)
[2018-10-15] MEDS ORDERED: COQ-10100 MG PO (05:48)
[2018-10-15] MEDS ORDERED: PROBIOTIC FORM1 EACH PO (05:49)
[2018-10-15] MEDS ORDERED: D3 PO (05:50)
== END 2018-05-17 20:31 | disposition home or self-care (01) ==
LOC: ED 18:30
DX: J45.909 Unspecified asthma, uncomplicated (principal); E78.00 Pure hypercholesterolemia, unspecified; I10 Essential (primary) hypertension; Z87.891 Personal history of nicotine dependence; Z95.0 Presence of cardiac pacemaker

== ENCOUNTER 2018-08-18 22:21 | Inpatient (IN) | payer OTHER ==
[~2018-08-18] VITALS: Ht 175.2 cm; Wt 79.0 kg
--- NOTE | ~2018-08-18 | EKG ---
[place], [place] ELECTROCARDIOGRAM REPORT NAME: GALILEA COPE UNIT #: [id number] ROOM: 517 DOCTOR: CHERYL DRAFT REPORT BIRTHDATE: [birth year] [facility] Test Date: 2018-08-18 Test Time: 22:22:09 Pat Name: GALILEA COPE Department: Room: [facility] Gender: M Granulizing Machine Operator: : 1960 Requested By: RENETTA LOZANO Order Number: [id number] Reading MD: Sukhdeep James MD Measurements Intervals [place] Rate: 86 P: 20 [place]: 179 QRS: 64 QRSD: 89 T: 78 QT: 345 QTc: 413 Interpretive Statements Sinus rhythm Nonspecific T abnormalities, lateral leads Baseline wander in lead(s) III Compared to ECG 04/07/2018 16:42:22 Myocardial infarct finding no longer present T-wave abnormality still present Electronically Signed On 08-19-2018 9:37:33 PDT by Sukhdeep James MD CM:EKGRPT:ELECTROCARDIOGRAM REPORT 21 0937 RENETTA ARMANDO DRAFT REPORT RENETTA LOZANO DO
--- NOTE | ~2018-08-18 | EKG ---
[place], [place] ELECTROCARDIOGRAM REPORT NAME: GALILEA COPE UNIT #: [id number] ROOM: 517 DOCTOR: CHERYL DRAFT REPORT BIRTHDATE: [birth year] [facility] Test Date: 2018-08-19 Test Time: 03:53:35 Pat Name: GALILEA COPE Department: Room: [facility] Gender: M Assistant Grocery: : 1960 Requested By: RENETTA LOZANO Order Number: [id number] Reading MD: Sukhdeep James MD Measurements Intervals [place] Rate: 70 P: [place]: 204 QRS: 54 QRSD: 92 T: 86 QT: 379 QTc: 409 Interpretive Statements Sinus rhythm Anteroseptal infarct, old Baseline wander in lead(s) V1,V2,V3,V4,V5,V6 Compared to ECG 04/07/2018 16:42:22 Sinus rhythm no longer present T-wave abnormality no longer present Myocardial infarct finding still present Electronically Signed On 08-19-2018 9:38:32 PDT by Sukhdeep James MD CM:EKGRPT:ELECTROCARDIOGRAM REPORT [id number] 0938 RENETTA ARMANDO DRAFT REPORT RENETTA LOZANO DO
--- NOTE | ~2018-08-18 | EKG ---
[place], [place] ELECTROCARDIOGRAM REPORT NAME: GALILEA COPE UNIT #: [id number] ROOM: 517 DOCTOR: CHERYL DRAFT REPORT BIRTHDATE: [birth year] [facility] Test Date: 2018-08-19 Test Time: 01:09:04 Pat Name: GALILEA COPE Department: Room: [facility] Gender: M Farmworker Fruit: : 1960 Requested By: RENETTA LOZANO Order Number: [id number] Reading MD: Sukhdeep James MD Measurements Intervals [place] Rate: 69 P: 10 [place]: 179 QRS: 53 QRSD: 89 T: 84 QT: 388 QTc: 416 Interpretive Statements Sinus rhythm Compared to ECG 04/07/2018 16:42:22 Myocardial infarct finding no longer present T-wave abnormality no longer present Electronically Signed On 08-19-2018 9:37:50 PDT by Sukhdeep James MD CM:EKGRPT:ELECTROCARDIOGRAM REPORT 0109 0937 RENETTA ARMANDO DRAFT REPORT RENETTA LOZANO DO
[2018-08-18 22:25] VITALS: BP 162/105
[2018-08-18 23:15] LABS: BASO % 0.8 % (0.0-1.0); EOS # 0.2 10*3/uL (0.0-0.4); HEMATOCRIT 43.6 % (42.0-52.0); HEMOGLOBIN 14.9 g/dl (14.0-18.0); LYMPH # 1.6 10*3/uL (1.3-4.4); LYMPH % 32.4 % (27.0-41.0); MEAN CELL VOLUME 99.8 fl (80.0-94.0); MEAN CORPUSCULAR HGB 34.1 pg (27.0-31.0); MEAN CORPUSCULAR HGB CONC 34.2 g/dl (33.0-37.0); MEAN PLATELET VOLUME 10.6 fl (9.6-12.3); MONO # 0.6 10*3/uL (0.1-1.0); MONO % 11.1 % (3.0-9.0); NEUT # 2.7 10*3/uL (2.3-7.9); NEUT % 52.3 % (47.0-73.0); PLATELET COUNT AUTOMATED 126 10*3/uL (130-400); RED BLOOD COUNT 4.37 10*6/uL (4.50-5.90); RED CELL DISTRI WIDTH 12.7 % (0-14.5); WHITE BLOOD COUNT 5.1 10*3/uL (4.8-10.8)
[2018-08-18 23:27] LABS: ACT PARTIAL THROMBO TIME 25.8 SECONDS (20.0-32.1); INTERNATIONAL NORM RATIO 0.9 (2.0-3.5)
[2018-08-18 23:34] LABS: ALBUMIN 3.5 gm/dl (3.1-4.5); ALKALINE PHOSPHATASE 79 U/L (45-117); BUN 17 mg/dl (7-24); CHLORIDE 108 mmol/L (98-107); CREATININE 1.06 mg/dL (0.70-1.30); SGOT/AST 22 IU/L (3-35); SGPT/ALT 40 U/L (12-78); SODIUM 140 mmol/L (136-145); TOTAL PROTEIN 6.4 gm/dL (6.4-8.2)
[2018-08-18 23:35] LABS: TROPONIN I < 0.015 ng/ml (<0.045)
[2018-08-19 00:44] VITALS: BP 130/97
[2018-08-19 01:35] VITALS: BP 145/95
[2018-08-19 01:43] VITALS: BP 132/87
[2018-08-19] MEDS ORDERED: ASPIRIN ADULT L81 M1 PO (01:56)
[2018-08-19] MEDS ORDERED: LASIX20 MG PO (01:57)
[2018-08-19] MEDS ORDERED: CLONIDINE1 EAC1 T (01:58)
[2018-08-19] MEDS ORDERED: ZYRTEC10 MG PO (01:59)
[2018-08-19] MEDS ORDERED: CLONIDINE HCL0.1 MG PO (01:59)
[2018-08-19] MEDS ORDERED: PROVENTIL HFA6.7 GM INH (02:02)
[2018-08-19 04:11] LABS: BASO % 0.6 % (0.0-1.0); EOS # 0.1 10*3/uL (0.0-0.4); EOS % 2.3 % (1.0-4.0); HEMATOCRIT 43.3 % (42.0-52.0); HEMOGLOBIN 14.4 g/dl (14.0-18.0); LYMPH # 1.7 10*3/uL (1.3-4.4); LYMPH % 34.9 % (27.0-41.0); MEAN CELL VOLUME 100.7 fl (80.0-94.0); MEAN CORPUSCULAR HGB 33.5 pg (27.0-31.0); MEAN CORPUSCULAR HGB CONC 33.3 g/dl (33.0-37.0); MEAN PLATELET VOLUME 10.9 fl (9.6-12.3); MONO # 0.5 10*3/uL (0.1-1.0); MONO % 10.4 % (3.0-9.0); NEUT # 2.5 10*3/uL (2.3-7.9); NEUT % 51.6 % (47.0-73.0); PLATELET COUNT AUTOMATED 113 10*3/uL (130-400); RED CELL DISTRI WIDTH 12.8 % (0-14.5); WHITE BLOOD COUNT 4.8 10*3/uL (4.8-10.8)
[2018-08-19 04:38] LABS: BUN 15 mg/dl (7-24); CHLORIDE 107 mmol/L (98-107); CHOLESTEROL 192 mg/dL (<200); CREATININE 1.03 mg/dL (0.70-1.30); HDL CHOLESTEROL 52 mg/dl (40-60); LDL CHOLESTEROL 128 mg/dL (9-159); PHOSPHOROUS 3.9 mg/dL (2.5-4.9); POTASSIUM 4.8 mmol/L (3.5-5.1); SODIUM 142 mmol/L (136-145); TRIGLYCERIDES 60 mg/dl (<150); VLDL CHOLESTEROL 12 mg/dL (6-40)
[2018-08-19 07:49] LABS: VITAMIN D, 25-HYDROXY 40.9 ng/mL (30-100)
[2018-08-19 08:00] VITALS: BP 152/95
[2018-08-19 12:00] VITALS: BP 155/91
[2018-08-19 16:00] VITALS: BP 146/91
[2018-10-15] MEDS ORDERED: B12,B-12,B 12500 MC1 PO (05:46)
[2018-10-15] MEDS ORDERED: VIT C PO (05:46)
[2018-10-15] MEDS ORDERED: GARLIC1000 M1 PO (05:47)
[2018-10-15] MEDS ORDERED: FISH OIL 1,0001 EAC4 PO (05:47)
[2018-10-15] MEDS ORDERED: COQ-10100 MG PO (05:48)
[2018-10-15] MEDS ORDERED: PROBIOTIC FORM1 EACH PO (05:49)
[2018-10-15] MEDS ORDERED: D3 PO (05:50)
== END 2018-08-19 17:40 | disposition left against medical advice (07) | DRG 309 ==
LOC: ED 22:21 → EDHOLD 08-19 00:48 → 5E 08-19 00:48
PROVIDERS: Emergency Medicine; Internal Medicine; ADMIT Internal Medicine
PROC: 4B02XSZ Measurement of Cardiac Pacemaker, External Approach (ICD-10-PCS; principal; 2018-08-19)
DX: R00.2 Palpitations (principal); E44.0 Moderate protein-calorie malnutrition; K21.9 Gastro-esophageal reflux disease without esophagitis; E78.00 Pure hypercholesterolemia, unspecified; J45.909 Unspecified asthma, uncomplicated; K57.90 Diverticulosis of intestine, part unspecified, without perforation or abscess without bleeding; Z53.21 Procedure and treatment not carried out due to patient leaving prior to being seen by health care provider; D69.6 Thrombocytopenia, unspecified; I10 Essential (primary) hypertension; Z95.0 Presence of cardiac pacemaker; Z88.8 Allergy status to other drugs, medicaments and biological substances; Z88.1 Allergy status to other antibiotic agents; Z88.2 Allergy status to sulfonamides; Z85.828 Personal history of other malignant neoplasm of skin; Z87.891 Personal history of nicotine dependence; Z82.49 Family history of ischemic heart disease and other diseases of the circulatory system; Z83.3 Family history of diabetes mellitus; Z80.8 Family history of malignant neoplasm of other organs or systems; Z79.899 Other long term (current) drug therapy; Z79.82 Long term (current) use of aspirin; Z68.25 Body mass index [BMI] 25.0-25.9, adult

== ENCOUNTER → 2018-10-15 | Outpatient (CLI) | payer OTHER ==
[~2018-10-15] MED LIST changes: +ASPIRIN ADULT L81 M1 PO; +CLONIDINE HCL0.1 MG PO; +COQ-10100 MG PO; +D3 PO; +LASIX20 MG PO; +PROBIOTIC FORM1 EACH PO; +VIT C PO
--- NOTE | ~2018-10-15 | ST ---
[place], [place] EXERCISE STRESS TEST REPORT NAME: GALILEA COPE UNIT #: [id number] ROOM: DOCTOR: ZINA REVELES MD BIRTHDATE: [birth year] DOS: 10/15/2018 LEXISCAN PORTION OF THE LEXISCAN CARDIOLITE Baseline cardiogram, sinus rhythm and intermittent atrial pacing, ventricular sensing 0.4 mg Lexiscan, duration of 10 seconds with no new EKG changes. The patient did have some chest heaviness and shortness of breath. Blood pressure and heart rate responses normal. Nuclear images will be reported separately. ZINA REVELES MD CM:STRESS:EXERCISE STRESS TEST REPORT 0708 ZINA REVELES MD
--- NOTE | 2018-10-15 07:00 | NUR ---
INFORMED CONSENT OBTAINED FOR LEXISCAN NUCLEAR STRESS TESTING WITH DR. REVELES. RESTING EKG ATRIAL PACED WITH A RESTING HR OF 80 WITH BP OF 142/90. LUNGS CLEAR WITH SP02 OF 96% ON ROOM AIR. PT COMPLETED A 1:00 LEXISCAN PROTOCOL RECEIVING LEXISCAN 0.4 MG IV OVER 10 SECONDS. HAD C/O CHEST PRESSURE THAT RESOLVED IN RECOVERY. EKG INTERMITTENT ATRIAL PACED. NO ST CHANGES. HAD A PEAK HR OF 83 WITH BP OF 124/86. LAST RECOVERY HR OF 75 WITH BP OF 120/84. AWAITING SCANNING IN STABLE CONDITION.
== END | disposition home or self-care (01) ==
LOC: CARD 01:06
DX: R53.81 Other malaise (principal); R07.9 Chest pain, unspecified; I10 Essential (primary) hypertension; I49.5 Sick sinus syndrome; R61 Generalized hyperhidrosis; Z95.0 Presence of cardiac pacemaker

== ENCOUNTER 2018-11-15 22:07 | Emergency (ER) | payer OTHER ==
[~2018-11-15] VITALS: Wt 78.9 kg
[2018-11-16] MEDS ORDERED: MEDROL DOSEPAK4 MG PO (00:20)
== END 2018-11-16 00:40 | disposition home or self-care (01) ==
LOC: ED 22:07
DX: S16.1XXA Strain of muscle, fascia and tendon at neck level, initial encounter (principal); R51 Headache; Z91.030 Bee allergy status; Z88.8 Allergy status to other drugs, medicaments and biological substances; Z88.1 Allergy status to other antibiotic agents; Z88.2 Allergy status to sulfonamides; Z79.82 Long term (current) use of aspirin; Z79.899 Other long term (current) drug therapy; Z87.891 Personal history of nicotine dependence; V86.99XA Unspecified occupant of other special all-terrain or other off-road motor vehicle injured in nontraffic accident, initial encounter; Y93.I9 Activity, other involving external motion; Y92.488 Other paved roadways as the place of occurrence of the external cause; Y99.8 Other external cause status

== ENCOUNTER 2018-12-18 20:04 | Emergency (ER) | payer OTHER ==
[~2018-12-18] VITALS: Ht 175.2 cm; Wt 77.6 kg
--- NOTE | ~2018-12-18 | EKG ---
[place], [place] ELECTROCARDIOGRAM REPORT NAME: GALILEA COPE UNIT #: [id number] ROOM: DOCTOR: EPIPHANY DRAFT REPORT BIRTHDATE: [birth year] [facility] Test Date: 2018-12-18 Test Time: 20:24:07 Pat Name: GALILEA COPE Department: ER Room: Gender: Pipelines Manager: : 1960 Requested By: DEYA SADLER DNP Order Number: [id number] Reading MD: Sukhdeep James MD Measurements Intervals [place] Rate: 90 P: 46 [place]: 178 QRS: 36 QRSD: 88 T: 79 QT: 337 QTc: 413 Interpretive Statements Sinus rhythm Abnormal R-wave progression, late transition Nonspecific T abnormalities, lateral leads Baseline wander in lead(s) I,aVR,V2,V4 Compared to ECG 08/19/2018 03:53:35 T-wave abnormality now present Myocardial infarct finding no longer present Electronically Signed On 12-23-2018 7:18:50 PDT by Sukhdeep James MD CM:EKGRPT:ELECTROCARDIOGRAM REPORT 23 7 DEYA LUNA DRAFT REPORT DEYA SADLER DNP
[~2018-12-18 20:04] MED LIST changes: -D3 PO; +PROBIOTIC 5 BI1 EACH PO; -PROBIOTIC FORM1 EACH PO; -VIT C PO; +VITAMIN C500 M8 PO; +VITAMIN D31000 UNI1 PO
[2018-12-18 20:36] LABS: BASO # 0.1 10*3/uL (0.0-0.1); BASO % 0.7 % (0.0-1.0); EOS # 0.1 10*3/uL (0.0-0.4); EOS % 1.8 % (1.0-4.0); HEMATOCRIT 47.5 % (42.0-52.0); HEMOGLOBIN 16.3 g/dl (14.0-18.0); LYMPH # 2.2 10*3/uL (1.3-4.4); LYMPH % 30.4 % (27.0-41.0); MEAN CORPUSCULAR HGB CONC 34.3 g/dl (33.0-37.0); MEAN PLATELET VOLUME 10.1 fl (9.6-12.3); MONO # 0.6 10*3/uL (0.1-1.0); MONO % 8.5 % (3.0-9.0); NEUT # 4.2 10*3/uL (2.3-7.9); NEUT % 58.3 % (47.0-73.0); PLATELET COUNT AUTOMATED 173 10*3/uL (130-400); RED CELL DISTRI WIDTH 12.6 % (0-14.5); WHITE BLOOD COUNT 7.2 10*3/uL (4.8-10.8)
[2018-12-18 20:56] LABS: ALKALINE PHOSPHATASE 81 U/L (45-117); BUN 15 mg/dl (7-24); CHLORIDE 107 mmol/L (98-107); CREATININE 0.85 mg/dL (0.70-1.30); LIPASE 162 U/L (73-393); POTASSIUM 3.7 mmol/L (3.5-5.1); SGOT/AST 33 IU/L (3-35); SGPT/ALT 45 U/L (12-78); SODIUM 139 mmol/L (136-145); TOTAL PROTEIN 7.2 gm/dL (6.4-8.2); TROPONIN I < 0.015 ng/ml (<0.045)
[2018-12-18 20:58] LABS: ACT PARTIAL THROMBO TIME 27.1 SECONDS (20.0-32.1); INTERNATIONAL NORM RATIO 0.9 (2.0-3.5)
== END 2018-12-18 22:56 | disposition home or self-care (01) ==
LOC: ED 20:04
PROVIDERS: Nurse Practitioner Family
DX: R00.2 Palpitations (principal); R61 Generalized hyperhidrosis; I10 Essential (primary) hypertension; E78.5 Hyperlipidemia, unspecified; Z95.0 Presence of cardiac pacemaker; Z91.030 Bee allergy status; Z88.8 Allergy status to other drugs, medicaments and biological substances; Z88.1 Allergy status to other antibiotic agents; Z88.2 Allergy status to sulfonamides; Z79.82 Long term (current) use of aspirin; Z79.899 Other long term (current) drug therapy; Z87.891 Personal history of nicotine dependence

== ENCOUNTER → 2018-12-30 | Outpatient (CLI) | payer OTHER ==
[~2018-12-30] MED LIST changes: +CRESTOR10 M1 PO; +DILTIAZEM CD240 MG PO; +PREDNISONE10 MG PO
--- NOTE | ~2018-12-30 | HM ---
[place], [place] HOLTER MONITOR REPORT NAME: GALILEA COPE UNIT #: [id number] ROOM: DOCTOR: MARIA GUADALUPE MOREIRA BIRTHDATE: [birth year] DOS: HOLTER MONITOR REPORT 48-HOUR HOLTER MONITOR TEST DATE: 12/30/2018. IMPRESSION: 1. Baseline rhythm is normal sinus. 2. Less than 1% atrial pacing. 3. Frequent PACs and atrial bigeminy (7% burden), short atrial run (4 beats). 4. Occasional PVCs. 5. No sustained SVT or VT. 6. No pause or AV block. 7. Monitor reported a few episodes of failure to capture, failure to sense, and failure to output. 8. Reported symptoms did not correlate with any arrhythmias. Dr. MARIA GUADALUPE MOREIRA MD CM:HOLTER:HOLTER MONITOR REPORT 1240 1349 MARIA GUADALUPE MOREIRA
== END | disposition home or self-care (01) ==
LOC: CARD 09:13
DX: R00.2 Palpitations (principal); F41.9 Anxiety disorder, unspecified; I10 Essential (primary) hypertension

== ENCOUNTER 2019-01-03 11:23 | Inpatient (IN) | payer OTHER ==
[~2019-01-03] VITALS: Ht 175.2 cm; Wt 80.4 kg
--- NOTE | ~2019-01-03 | EKG ---
[place], [place] ELECTROCARDIOGRAM REPORT NAME: GALILEA COPE UNIT #: [id number] ROOM: 424 DOCTOR: CHERYL DRAFT REPORT BIRTHDATE: [birth year] [facility] Test Date: 2019-01-03 Test Time: 14:10:57 Pat Name: GALILEA COPE Department: Room: 424 Gender: M Senior Marketing Specialist: KARTHIK : 1960 Requested By: TAMMIE MOODY Order Number: [id number] Reading MD: Diony Cuellar MD Measurements Intervals [place] Rate: 75 P: [place]: 191 QRS: 49 QRSD: 91 T: 69 QT: 373 QTc: 417 Interpretive Statements Atrial-paced complexes Nonspecific T abnormalities, lateral leads Compared to ECG 12/18/2018 20:24:07 Sinus rhythm no longer present T-wave abnormality still present Electronically Signed On 01-03-2019 11:27:23 PDT by Diony Cuellar MD CM:EKGRPT:ELECTROCARDIOGRAM REPORT 1410 1127 TAMMIE ARMANDO DRAFT REPORT TAMMIE MOODY DO
--- NOTE | ~2019-01-03 | EKG ---
[place], [place] ELECTROCARDIOGRAM REPORT NAME: GALILEA COPE UNIT #: [id number] ROOM: 424 DOCTOR: CHERYL DRAFT REPORT BIRTHDATE: [birth year] [facility] Test Date: 2019-01-03 Test Time: 11:25:10 Pat Name: GALILEA COPE Department: Room: 424 Gender: M Washhouse Hand: : 1960 Requested By: TAMMIE MOODY Order Number: [id number] Reading MD: Diony Cuellar MD Measurements Intervals [place] Rate: 87 P: 11 MD: 184 QRS: 13 QRSD: 86 T: 95 QT: 331 QTc: 398 Interpretive Statements Sinus rhythm Ventricular trigeminy Possible anteroseptal infarct, old Nonspecific T abnormalities, lateral leads Compared to ECG 12/18/2018 20:24:07 Ventricular premature complex(es) now present Myocardial infarct finding now present T-wave abnormality still present Electronically Signed On 01-03-2019 11:27:02 PDT by Diony Cuellar MD CM:EKGRPT:ELECTROCARDIOGRAM REPORT 1125 1127 TAMMIE ARMANDO DRAFT REPORT TAMMIE MOODY DO
--- NOTE | ~2019-01-03 | EKG ---
[place], [place] ELECTROCARDIOGRAM REPORT NAME: GALILEA COPE UNIT #: [id number] ROOM: 424 DOCTOR: CHERYL DRAFT REPORT BIRTHDATE: [birth year] [facility] Test Date: 2019-01-03 Test Time: 17:11:28 Pat Name: GALILEA COPE Department: Room: 424 Gender: M Field Services Analyst: George Beck : 1960 Requested By: TAMMIE MOODY Order Number: [id number] Reading MD: Adela Inman MD Measurements Intervals [place] Rate: 79 P: 13 [place]: 197 QRS: 52 QRSD: 93 T: 91 QT: 377 QTc: 433 Interpretive Statements Sinus rhythm Abnormal R-wave progression, late transition Nonspecific T abnormalities, lateral leads Compared to ECG 01/03/2019 14:10:57 Atrial-paced complex(es) or rhythm no longer present T-wave abnormality still present Electronically Signed On 01-04-2019 14:22:02 PDT by Adela Inman MD CM:EKGRPT:ELECTROCARDIOGRAM REPORT 1711 1422 TAMMIE ARMANDO DRAFT REPORT TAMMIE MOODY DO
--- NOTE | ~2019-01-03 | CON ---
[place], [place] REPORT OF CONSULTATION NAME: GALILEA COPE UNIT #: [id number] ROOM: 424 DOCTOR: MARIA GUADALUPE MOREIRA BIRTHDATE: [birth year] DOS: 01/03/2019 CARDIOLOGY CONSULTATION REASON FOR CONSULTATION: Palpitations, chest pain. REQUESTING PHYSICIAN: Dr. Yunior Cole. HISTORY OF PRESENT ILLNESS: The patient is a 58-year-old gentleman, previously followed by both Dr. Wellington and Dr. Mancia, who has a history of complete heart block in 2008 with implantation of a dual chamber pacemaker, which was recently changed in 2018 for routine generator change. The patient states for the past month, he has had on and off palpitations, shortness of breath, and intermittent chest pains. He recently wore a Holter monitor, which I interpreted. There were no major concerning findings on the Holter monitor. The patient states most of these episodes all occurred at rest. He works in a body shop during the day and does not get any exertional symptoms. He states his chest pain is sharp, lasts a few minutes, does not radiate, feels like it is stabbing his heart, goes away on its own. States Tylenol sometimes helps with the pain. Today, he was at work and he had palpitations and trouble breathing along with some brief sharp chest pains. He presented to the ER for evaluation. In the ER, a CTA of the chest showed no evidence of PE and clear lungs. Troponins have been negative thus far. There have been no acute EKG changes. He is in sinus rhythm with intermittent atrial pacing with no acute EKG changes. Of note, he has multiple drug allergies including to AMLODIPINE, which apparently caused bleeding gums, and BETA-BLOCKERS, which caused some swelling. His current antihypertensive regimen includes clonidine, both by patch and by mouth as well as oral furosemide. PAST MEDICAL HISTORY: Hypertension, asthma, intermittent complete heart block, status post dual chamber pacemaker initially 2008 with a generator change in 2018. Also past medical history includes skin cancer. PAST SURGICAL HISTORY: Includes surgery for skin cancer removal. SOCIAL HISTORY: He quit smoking in 2006. He drinks a couple of beers a day. He denies any illicit drug use. He works at a body shop, which is fairly physical heavy work, again, he gets no chest pain when he does that. FAMILY HISTORY: Notable for coronary artery disease in his father, who had an LA at the age of 48 and at the age of 76. Mother is with complications of bone cancer. REVIEW OF SYSTEMS: Otherwise, negative except as described above. HOME MEDICATIONS: Aspirin 81 mg daily, clonidine 0.5 mg p.o. b.i.d., clonidine patch 0.2 mg q. 24 hours changed weekly, furosemide 20 mg daily. He is also on albuterol, ascorbic acid, cetirizine, vitamin D3, vitamin B12, garlic capsules, [place], [place] REPORT OF CONSULTATION NAME: GALILEA COPE UNIT #: [id number] ROOM: 424 DOCTOR: MARIA GUADALUPE MOREIRA BIRTHDATE: [birth year] omega 3 fatty acid capsules, and CoQ10 capsules. ALLERGIES: LISTED DOXYCYCLINE, SULFAMETHOXAZOLE/TRIMETHOPRIM, METOPROLOL, AMLODIPINE, AMOXICILLIN, LEVOFLOXACIN. PHYSICAL EXAMINATION: VITAL SIGNS: Afebrile, pulse 77, respirations 20, blood pressure 140/90, saturating 99% on room air. GENERAL APPEARANCE: Well-appearing, middle-aged male, sitting up in bed, in no distress. EYES: Normal. ENT: Shows moist mucous membranes. NECK: Supple. JVP is normal. No carotid bruits. RESPIRATORY: Lungs are clear. CARDIOVASCULAR: Regular rhythm with normal rate. There are no murmurs. There is left chest wall pacemaker. ABDOMEN: Positive bowel sounds. Soft, nontender. EXTREMITIES: Warm and well perfused. There is no edema. SKIN: No lesions or rashes. NEUROLOGIC: Nonfocal. LABORATORY DATA: Hemoglobin 16.3, platelets 176, potassium 3.8, creatinine 0.89, magnesium 2.3. Troponin is negative x 2. EKG on presentation showed a sinus rhythm with frequent PVCs, poor R-wave progression. Nonspecific T-wave abnormalities. Subsequent EKG showed atrial pacing and ventricular sensing. Myocardial perfusion imaging from September 2018 showed normal EF with no evidence of ischemia or scar with an EF greater than 78%. A transthoracic echocardiogram from August 2018 showed normal LVEF of 55-60% with normal diastolic function. RV was normal. No other abnormalities and valvular function was normal. Holter monitor from 12/30/2018 was a 48-hour study. Baseline rhythm was normal sinus with less than 1% of atrial pacing. There were frequent PACs with a burden of 7% with frequent atrial bigeminy. There was a short atrial run at most 4 beats. Occasional PVCs were noted. There was no pause or AV block. No sustained SVT or VT. The reported symptoms on the diary did not correlate with any arrhythmias. The minimum heart rate was 59 beats per minute and maximum heart rate was 121 beats per minute with an average of 81 beats per minute. Chest x-ray showed no acute findings. CT thorax showed no PE, clear lungs, coronary calcifications were noted. IMPRESSION: 1. Atypical chest pain, no evidence of acute coronary syndrome. Recent perfusion imaging was negative. He does have coronary calcifications noted on CT. [place], [place] REPORT OF CONSULTATION NAME: GALILEA COPE UNIT #: [id number] ROOM: [facility] DOCTOR: MARIA GUADALUPE MOREIRA BIRTHDATE: [birth year] 2. Palpitations. 3. Shortness of breath. 4. History of complete heart block, status post [facility] dual chamber chest pacemaker placed in 2008, with generator change in 2018. 5. Hypertension. 6. Multiple drug allergies including METOPROLOL and AMLODIPINE. 7. Former tobacco abuse. 8. Asthma. RECOMMENDATIONS: His chest pain seems atypical. His main complaint seems to be the palpitations, which then makes him anxious and short of breath. He has been unable to tolerate beta-hakeem therapy. At this time, I recommend the followin. Initiate diltiazem CR 240 mg daily. 2. No need for repeat stress testing or other cardiac testing at this time. 3. Continue home regimen, which is an unusual regimen for blood pressure, which include clonidine and furosemide. 4. Risk factor modification. He does have coronary artery calcifications. We would continue aspirin therapy. 5. Could consider statin therapy depending on his ASCVD risk. Thank you for the consultation. Dr. MARIA GUADALUPE MOREIRA MD CM:CONSTR:REPORT OF CONSULTATION 1526 01/03/19 1605 interface
[~2019-01-03 11:23] MED LIST changes: -CRESTOR10 M1 PO; -DILTIAZEM CD240 MG PO; -PREDNISONE10 MG PO
[2019-01-03 11:27] VITALS: BP 169/100
[2019-01-03 11:53] LABS: BASO # 0.1 10*3/uL (0.0-0.1); BASO % 0.5 % (0.0-1.0); EOS # 0.1 10*3/uL (0.0-0.4); EOS % 0.5 % (1.0-4.0); HEMATOCRIT 48.1 % (42.0-52.0); HEMOGLOBIN 16.3 g/dl (14.0-18.0); LYMPH # 2.2 10*3/uL (1.3-4.4); LYMPH % 23.1 % (27.0-41.0); MEAN CELL VOLUME 98.2 fl (80.0-94.0); MEAN CORPUSCULAR HGB 33.3 pg (27.0-31.0); MEAN CORPUSCULAR HGB CONC 33.9 g/dl (33.0-37.0); MEAN PLATELET VOLUME 10.4 fl (9.6-12.3); MONO # 0.8 10*3/uL (0.1-1.0); MONO % 8.7 % (3.0-9.0); NEUT # 6.2 10*3/uL (2.3-7.9); NEUT % 66.9 % (47.0-73.0); PLATELET COUNT AUTOMATED 176 10*3/uL (130-400); RED CELL DISTRI WIDTH 12.5 % (0-14.5); WHITE BLOOD COUNT 9.3 10*3/uL (4.8-10.8)
[2019-01-03 11:55] VITALS: BP 135/85
--- NOTE | 2019-01-03 12:02 | NUR ---
PT TOOK HOME CLONODINE 0.1 @ 1202 AND REFUSES METROPOLOL 25MG STATING "I HAVE REACTIONS TO BETA BLOCKERS(2 OF THEM)AN I DON'T TAKE ANY SINCE THAT". DR REED NOTIFIED.
[2019-01-03 12:09] LABS: ALBUMIN 4.1 gm/dl (3.1-4.5); ALKALINE PHOSPHATASE 82 U/L (45-117); BUN 11 mg/dl (7-24); CHLORIDE 106 mmol/L (98-107); CREATININE 0.89 mg/dL (0.70-1.30); POTASSIUM 3.8 mmol/L (3.5-5.1); SGOT/AST 53 IU/L (3-35); SGPT/ALT 67 U/L (12-78); SODIUM 138 mmol/L (136-145); TOTAL PROTEIN 7.4 gm/dL (6.4-8.2)
[2019-01-03 12:10] LABS: TROPONIN I < 0.015 ng/ml (<0.045)
[2019-01-03 12:20] LABS: ACT PARTIAL THROMBO TIME 25.9 SECONDS (20.0-32.1)
[2019-01-03 12:43] VITALS: BP 148/79
[2019-01-03 14:12] VITALS: BP 140/90
--- NOTE | 2019-01-03 14:20 | NUR ---
Spoke with Robin from [employer], states he will be here today to interogate pacer.
--- NOTE | 2019-01-03 14:23 | NUR ---
Resident for cardiology in, pt states that he has seen Dr. Wellington and Erika but does not wish to follow with them.
--- NOTE | 2019-01-03 14:45 | NUR ---
Notified Dr. Seymour that med rec updated.
--- NOTE | 2019-01-03 15:25 | NUR ---
Taken off floor for CT scan.
[2019-01-03 16:40] VITALS: BP 139/96
--- NOTE | 2019-01-03 16:59 | NUR ---
Rep from [employer] was in and states that pacer checked and everything is fine. States there were no arrhythmia's detected, working as it should.
--- NOTE | 2019-01-03 17:05 | NUR ---
Given sputum cup and instructed on use.
--- NOTE | 2019-01-03 17:30 | NUR ---
I spoke with monitoring analyst regarding being unable to see pt on monitors in [place] or at nurses station. Pt was recent adm. Monitor pt has on states 4ne and he was noted to paced on monitor as at admission. I spoke with monitoring analyst who informed me that nursing supervisor electronic coils Bharathi stated to monitor techs to start transitioning pt to 4ne monitor due to a need to updated computers on 4e. Currently unable to see any monitor for this pt unless looking at the portable monitor on pt.
[2019-01-03 20:00] VITALS: BP 141/81
--- NOTE | 2019-01-03 23:15 | NUR ---
PT SLEEPING, RESPIRATIONS EASY AND REGULAR ON ROOM AIR. NO S/S DISTRESS. NO C/O. BED IN LOWEST, LOCKED POS, CALL LIGTH IS WITHIN REACH.
[2019-01-04] VITALS: BP 132/84
[2019-01-04 04:00] VITALS: BP 134/97
--- NOTE | 2019-01-04 05:31 | NUR ---
DR QUIROS NOTIFIED PATIENT STATES HE TAKES AM MEDS AT 6 AM NOT 10. STATES OK TO GIVE NOW
[2019-01-04 07:58] LABS: HEMATOCRIT 50.2 % (42.0-52.0); HEMOGLOBIN 16.8 g/dl (14.0-18.0); MEAN CELL VOLUME 99.8 fl (80.0-94.0); MEAN CORPUSCULAR HGB 33.4 pg (27.0-31.0); MEAN CORPUSCULAR HGB CONC 33.5 g/dl (33.0-37.0); MEAN PLATELET VOLUME 10.6 fl (9.6-12.3); PLATELET COUNT AUTOMATED 156 10*3/uL (130-400); RED BLOOD COUNT 5.03 10*6/uL (4.50-5.90); RED CELL DISTRI WIDTH 12.8 % (0-14.5); WHITE BLOOD COUNT 12.1 10*3/uL (4.8-10.8)
[2019-01-04 08:00] VITALS: BP 120/64
[2019-01-04 08:27] LABS: BUN 13 mg/dl (7-24); CHLORIDE 105 mmol/L (98-107); CHOLESTEROL 250 mg/dL (<200); CREATININE 1.21 mg/dL (0.70-1.30); FREE T4 0.78 ng/dl (0.76-1.46); HDL CHOLESTEROL 66 mg/dl (40-60); LDL CHOLESTEROL 172 mg/dL (9-159); PHOSPHOROUS 3.7 mg/dL (2.5-4.9); SODIUM 137 mmol/L (136-145); TRIGLYCERIDES 61 mg/dl (<150); VLDL CHOLESTEROL 12 mg/dL (6-40)
[2019-01-04 08:34] LABS: THYROID STIM HORMONE (HS) 0.745 uIU/ml (0.358-4.75)
[2019-01-04 08:39] LABS: MICROCYTOSIS SLIGHT; PLATELET SUFFICIENCY NORMAL (NORMAL); TOTAL CELLS COUNTED 100 #CELLS
[2019-01-04] MEDS ORDERED: CRESTOR10 M1 PO (08:55)
[2019-01-04] MEDS ORDERED: ZITHROMAX250 MG PO (08:55)
[2019-01-04] MEDS ORDERED: DILTIAZEM CD240 MG PO (08:55)
[2019-01-04] MEDS ORDERED: PREDNISONE10 MG PO (08:55)
[2019-01-04 09:07] LABS: VITAMIN D, 25-HYDROXY 31.9 ng/mL (30-100)
--- NOTE | 2019-01-04 11:36 | NUR ---
Discharge instructions reviewed with patient. Patient receptive and verbalizes understanding. Follow-up care arranged. Written instructions given to patient. PATIENT DISCHARGED TO [facility] AMBULATORY, FOR TRANSPORT HOME BY PRIVATE VEHCILE. [facility] DIAZ
== END 2019-01-04 11:39 | disposition home or self-care (01) | DRG 243 ==
LOC: ED 11:23 → EDHOLD 13:39 → 4E 13:49
PROVIDERS: Internal Medicine; ADMIT Emergency Medicine
DX: K21.9 Gastro-esophageal reflux disease without esophagitis (principal); E83.41 Hypermagnesemia; J45.909 Unspecified asthma, uncomplicated; K57.90 Diverticulosis of intestine, part unspecified, without perforation or abscess without bleeding; E78.00 Pure hypercholesterolemia, unspecified; I10 Essential (primary) hypertension; R73.9 Hyperglycemia, unspecified; R74.0 Nonspecific elevation of levels of transaminase and lactic acid dehydrogenase [LDH]; E66.3 Overweight; E53.8 Deficiency of other specified B group vitamins; I25.10 Atherosclerotic heart disease of native coronary artery without angina pectoris; Z83.3 Family history of diabetes mellitus; Z95.0 Presence of cardiac pacemaker; Z87.891 Personal history of nicotine dependence; Z82.49 Family history of ischemic heart disease and other diseases of the circulatory system; Z79.899 Other long term (current) drug therapy; Z79.82 Long term (current) use of aspirin; Z80.9 Family history of malignant neoplasm, unspecified; Z88.8 Allergy status to other drugs, medicaments and biological substances; Z88.1 Allergy status to other antibiotic agents; Z68.26 Body mass index [BMI] 26.0-26.9, adult

== ENCOUNTER → 2019-04-25 | Outpatient (CLI) | payer OTHER ==
[~2019-04-25] MED LIST changes: +CRESTOR10 M1 PO; +DILTIAZEM CD240 MG PO; +PREDNISONE10 MG PO
[2019-04-26 08:12] LABS: HEPATITIS B SURFACE AG Negative (Negative); HEPATITIS C VIRUS ANTIBODY <0.1 s/co (0.0-0.9)
== END | disposition home or self-care (01) ==
LOC: LAB 09:55 → US 10:30
PROVIDERS: Nurse Practitioner Family
DX: K76.0 Fatty (change of) liver, not elsewhere classified (principal); R94.5 Abnormal results of liver function studies

== ENCOUNTER 2019-06-27 13:24 | Emergency (ER) | payer OTHER ==
[~2019-06-27] VITALS: Ht 175.2 cm; Wt 78.5 kg
[2019-06-27] MEDS ORDERED: ZITHROMAX250 MG PO (13:42)
[2019-06-27] MEDS ORDERED: CETIRIZINE10 MG PO (13:42)
== END 2019-06-27 13:48 | disposition home or self-care (01) ==
LOC: ED 13:24
DX: J32.9 Chronic sinusitis, unspecified (principal); I10 Essential (primary) hypertension; Z91.030 Bee allergy status; Z88.1 Allergy status to other antibiotic agents; Z88.8 Allergy status to other drugs, medicaments and biological substances; Z88.2 Allergy status to sulfonamides; Z79.899 Other long term (current) drug therapy; Z79.2 Long term (current) use of antibiotics; Z79.82 Long term (current) use of aspirin; Z95.0 Presence of cardiac pacemaker; Z87.891 Personal history of nicotine dependence

== ENCOUNTER → 2019-08-08 | Outpatient (CLI) | payer OTHER ==
[~2019-08-08] MED LIST changes: +CETIRIZINE10 MG PO
[2019-08-08 10:47] LABS: BASO % 0.8 % (0.0-1.0); EOS # 0.1 10*3/uL (0.0-0.4); EOS % 1.3 % (1.0-4.0); HEMATOCRIT 47.5 % (42.0-52.0); LYMPH # 1.1 10*3/uL (1.3-4.4); LYMPH % 28.6 % (27.0-41.0); MEAN CELL VOLUME 98.3 fl (80.0-94.0); MEAN CORPUSCULAR HGB 32.9 pg (27.0-31.0); MEAN CORPUSCULAR HGB CONC 33.5 g/dl (33.0-37.0); MEAN PLATELET VOLUME 10.3 fl (9.6-12.3); MONO # 0.4 10*3/uL (0.1-1.0); NEUT # 2.4 10*3/uL (2.3-7.9); PLATELET COUNT AUTOMATED 163 10*3/uL (130-400); RED BLOOD COUNT 4.83 10*6/uL (4.50-5.90); RED CELL DISTRI WIDTH 12.6 % (0-14.5); WHITE BLOOD COUNT 3.9 10*3/uL (4.8-10.8)
[2019-08-08 11:17] LABS: ALBUMIN 4.2 gm/dl (3.1-4.5); BILIRUBIN, DIRECT 0.2 mg/dL (0.0-0.2); TOTAL PROTEIN 7.5 gm/dL (6.4-8.2)
== END | disposition home or self-care (01) ==
LOC: LAB 10:25
PROVIDERS: Internal Medicine Gastroenterology
DX: K76.0 Fatty (change of) liver, not elsewhere classified (principal)

== ENCOUNTER 2019-09-28 09:29 | Emergency (ER) | payer OTHER ==
[~2019-09-28] VITALS: Ht 175.2 cm; Wt 77.1 kg
[2019-09-28 10:06] LABS: BASO % 0.6 % (0.0-1.0); EOS % 0.6 % (1.0-4.0); HEMATOCRIT 45.3 % (42.0-52.0); LYMPH # 1.5 10*3/uL (1.3-4.4); LYMPH % 22.9 % (27.0-41.0); MEAN CELL VOLUME 97.6 fl (80.0-94.0); MEAN CORPUSCULAR HGB 33.2 pg (27.0-31.0); MONO # 0.6 10*3/uL (0.1-1.0); MONO % 9.4 % (3.0-9.0); NEUT # 4.5 10*3/uL (2.3-7.9); NEUT % 66.2 % (47.0-73.0); PLATELET COUNT AUTOMATED 146 10*3/uL (130-400); RED BLOOD COUNT 4.64 10*6/uL (4.50-5.90); RED CELL DISTRI WIDTH 13.2 % (0-14.5); WHITE BLOOD COUNT 6.7 10*3/uL (4.8-10.8)
[2019-09-28 10:16] LABS: ACT PARTIAL THROMBO TIME 25.9 SECONDS (20.0-32.1)
[2019-09-28 10:22] LABS: ALBUMIN 3.8 gm/dl (3.1-4.5); ALKALINE PHOSPHATASE 74 U/L (45-117); BUN 14 mg/dl (7-24); CHLORIDE 107 mmol/L (98-107); CREATININE 0.94 mg/dL (0.70-1.30); LIPASE 148 U/L (73-393); SGOT/AST 50 IU/L (3-35); SGPT/ALT 67 U/L (12-78); SODIUM 139 mmol/L (136-145); TOTAL PROTEIN 7.1 gm/dL (6.4-8.2)
[2019-09-28 10:23] LABS: TROPONIN I < 0.015 ng/ml (<0.045)
== END 2019-09-28 12:57 | disposition home or self-care (01) ==
LOC: ED 09:29
PROVIDERS: Nurse Practitioner Family
DX: H53.8 Other visual disturbances (principal); R42 Dizziness and giddiness; I10 Essential (primary) hypertension; E78.5 Hyperlipidemia, unspecified; Z88.1 Allergy status to other antibiotic agents; Z88.6 Allergy status to analgesic agent; Z88.2 Allergy status to sulfonamides; Z91.030 Bee allergy status; Z79.899 Other long term (current) drug therapy; Z79.82 Long term (current) use of aspirin; Z87.891 Personal history of nicotine dependence

== ENCOUNTER 2019-11-20 10:24 | Observation (INO) | payer OTHER ==
[~2019-11-20] VITALS: Ht 175.3 cm; Wt 81.0 kg
[2019-11-20 10:34] VITALS: BP 150/88
[2019-11-20 10:38] LABS: BASO % 0.6 % (0.0-1.0); EOS # 0.1 10*3/uL (0.0-0.4); EOS % 0.8 % (1.0-4.0); HEMATOCRIT 46.9 % (42.0-52.0); LYMPH # 1.3 10*3/uL (1.3-4.4); LYMPH % 21.1 % (27.0-41.0); MEAN CELL VOLUME 97.7 fl (80.0-94.0); MEAN CORPUSCULAR HGB 33.1 pg (27.0-31.0); MEAN CORPUSCULAR HGB CONC 33.9 g/dl (33.0-37.0); MEAN PLATELET VOLUME 10.2 fl (9.6-12.3); MONO # 0.6 10*3/uL (0.1-1.0); MONO % 8.7 % (3.0-9.0); NEUT # 4.3 10*3/uL (2.3-7.9); NEUT % 68.3 % (47.0-73.0); PLATELET COUNT AUTOMATED 169 10*3/uL (130-400); RED CELL DISTRI WIDTH 12.8 % (0-14.5); WHITE BLOOD COUNT 6.4 10*3/uL (4.8-10.8)
[2019-11-20 10:50] LABS: ACT PARTIAL THROMBO TIME 28.2 SECONDS (20.0-32.1)
[2019-11-20 10:55] LABS: ALBUMIN 4.1 gm/dl (3.1-4.5); ALKALINE PHOSPHATASE 87 U/L (45-117); BUN 21 mg/dl (7-24); CHLORIDE 107 mmol/L (98-107); CREATININE 1.04 mg/dL (0.70-1.30); POTASSIUM 4.1 mmol/L (3.5-5.1); SGOT/AST 80 IU/L (3-35); SGPT/ALT 105 U/L (12-78); SODIUM 138 mmol/L (136-145)
[2019-11-20 10:57] LABS: TROPONIN I < 0.015 ng/ml (<0.045)
[2019-11-20 11:13] VITALS: BP 136/91
[2019-11-20 11:49] VITALS: BP 156/100
[2019-11-20] MEDS ORDERED: HYDROXYZINE PAM25 M1 PO (12:15)
[2019-11-20 16:00] VITALS: BP 150/92
[2019-11-20 20:00] VITALS: BP 160/89
== END 2019-11-20 20:13 | disposition left against medical advice (07) ==
LOC: ED 10:24 → EDHOLD 11:13 → 4E 11:13
PROVIDERS: Emergency Medicine; ADMIT Internal Medicine; ATTEND Internal Medicine
DX: R07.89 Other chest pain (principal); R73.9 Hyperglycemia, unspecified; R74.0 Nonspecific elevation of levels of transaminase and lactic acid dehydrogenase [LDH]; D75.89 Other specified diseases of blood and blood-forming organs; E78.00 Pure hypercholesterolemia, unspecified; I10 Essential (primary) hypertension; E55.9 Vitamin D deficiency, unspecified

== ENCOUNTER → 2020-01-01 | Outpatient (CLI) | payer OTHER ==
[~2020-01-01] MED LIST changes: +HYDROXYZINE PAM25 M1 PO
== END | disposition home or self-care (01) ==
LOC: RAD 08:49
PROVIDERS: ATTEND Nurse Practitioner Family
DX: M25.511 Pain in right shoulder (principal); M25.512 Pain in left shoulder; G89.29 Other chronic pain

== ENCOUNTER → 2020-04-23 | Outpatient (CLI) | payer OTHER ==
[2020-04-23 12:46] LABS: ACT PARTIAL THROMBO TIME 27.8 SECONDS (20.0-32.1)
[2020-04-23 13:11] LABS: THYROID STIM HORMONE (HS) 1.41 uIU/ml (0.358-4.75)
[2020-04-24 06:07] LABS: ALPHA-1-ANTITRYPSIN, SERUM 157 mg/dL (101-187)
[2020-04-24 14:08] LABS: t-TRANSGLUTAMINASE (tTG) IGA <2 U/mL (0-3); t-TRANSGLUTAMINASE (tTG) IgG 5 U/mL (0-5)
[2020-04-24 15:06] LABS: ANTI-SMOOTH MUSCLE ANTIBODY 8 Units (0-19)
== END | disposition home or self-care (01) ==
LOC: LAB 12:10
PROVIDERS: ATTEND Nurse Practitioner Family
DX: K76.0 Fatty (change of) liver, not elsewhere classified (principal); R79.89 Other specified abnormal findings of blood chemistry

== ENCOUNTER → 2020-07-16 | Outpatient (CLI) | payer OTHER ==
[2020-07-16 09:27] LABS: ALBUMIN 4.1 gm/dl (3.1-4.5); ALKALINE PHOSPHATASE 79 U/L (45-117); BUN 13 mg/dl (7-24); CHLORIDE 104 mmol/L (98-107); CREATININE 0.94 mg/dL (0.70-1.30); POTASSIUM 4.2 mmol/L (3.5-5.1); SGOT/AST 66 IU/L (3-35); SGPT/ALT 105 U/L (12-78); SODIUM 139 mmol/L (136-145); TOTAL PROTEIN 7.5 gm/dL (6.4-8.2)
== END | disposition home or self-care (01) ==
LOC: LAB 08:17 → US 08:17
PROVIDERS: ATTEND Nurse Practitioner Family
DX: K76.0 Fatty (change of) liver, not elsewhere classified (principal); K82.8 Other specified diseases of gallbladder

== ENCOUNTER → 2020-10-24 | Outpatient (CLI) | payer OTHER | END | disposition home or self-care (01) | LOC: RAD 07:16 | PROVIDERS: ATTEND Nurse Practitioner Family | DX: M17.11 Unilateral primary osteoarthritis, right knee (principal); I70.90 Unspecified atherosclerosis; M25.861 Other specified joint disorders, right knee ==

== ENCOUNTER → 2020-12-29 | Outpatient (CLI) | payer OTHER | END | disposition home or self-care (01) | LOC: RAD 05:49 | PROVIDERS: ATTEND Nurse Practitioner Family | DX: M17.11 Unilateral primary osteoarthritis, right knee (principal); R22.41 Localized swelling, mass and lump, right lower limb ==

== ENCOUNTER → 2021-02-07 | Outpatient (CLI) | payer OTHER ==
[2021-02-07 06:18] LABS: ALBUMIN 3.7 gm/dl (3.1-4.5); ALKALINE PHOSPHATASE 67 U/L (45-117); BUN 18 mg/dl (7-24); CHLORIDE 107 mmol/L (98-107); CREATININE 0.91 mg/dL (0.70-1.30); POTASSIUM 4.3 mmol/L (3.5-5.1); SGOT/AST 25 IU/L (3-35); SGPT/ALT 45 U/L (12-78); SODIUM 140 mmol/L (136-145); TOTAL PROTEIN 7.4 gm/dL (6.4-8.2)
== END | disposition home or self-care (01) ==
LOC: LAB 05:09
PROVIDERS: ATTEND Internal Medicine Gastroenterology
DX: R94.5 Abnormal results of liver function studies (principal)

== ENCOUNTER → 2021-04-08 | Outpatient (CLI) | payer OTHER | END | disposition home or self-care (01) | LOC: RAD 10:07 | PROVIDERS: ATTEND Nurse Practitioner Family | DX: I51.5 Myocardial degeneration (principal); R07.89 Other chest pain ==

== ENCOUNTER 2021-04-10 17:33 | Emergency (ER) | payer OTHER ==
[~2021-04-10] VITALS: Ht 175.2 cm; Wt 77.1 kg
[2021-04-10 18:09] LABS: BASO % 0.6 % (0.0-1.0); EOS # 0.1 10*3/uL (0.0-0.4); EOS % 1.1 % (1.0-4.0); HEMATOCRIT 47.5 % (42.0-52.0); LYMPH # 1.8 10*3/uL (1.3-4.4); LYMPH % 27.5 % (27.0-41.0); MEAN CELL VOLUME 95.2 fl (80.0-94.0); MEAN CORPUSCULAR HGB 32.9 pg (27.0-31.0); MEAN CORPUSCULAR HGB CONC 34.5 g/dl (33.0-37.0); MEAN PLATELET VOLUME 10.2 fl (9.6-12.3); MONO # 0.5 10*3/uL (0.1-1.0); MONO % 7.7 % (3.0-9.0); NEUT % 62.9 % (47.0-73.0); PLATELET COUNT AUTOMATED 167 10*3/uL (130-400); RED BLOOD COUNT 4.99 10*6/uL (4.50-5.90); RED CELL DISTRI WIDTH 12.2 % (0-14.5); WHITE BLOOD COUNT 6.4 10*3/uL (4.8-10.8)
[2021-04-10 18:22] LABS: ACT PARTIAL THROMBO TIME 27.6 SECONDS (20.0-32.1); INTERNATIONAL NORM RATIO 1.1 (2.0-3.5)
[2021-04-10 18:26] LABS: ALBUMIN 4.2 gm/dl (3.1-4.5); ALKALINE PHOSPHATASE 69 U/L (45-117); BUN 12 mg/dl (7-24); CHLORIDE 105 mmol/L (98-107); POTASSIUM 4.1 mmol/L (3.5-5.1); SGOT/AST 35 IU/L (3-35); SGPT/ALT 57 U/L (12-78); SODIUM 137 mmol/L (136-145); TOTAL PROTEIN 7.4 gm/dL (6.4-8.2)
== END 2021-04-10 20:35 | disposition home or self-care (01) ==
LOC: ED 17:33
PROVIDERS: Nurse Practitioner Family
DX: I10 Essential (primary) hypertension (principal); Z20.822 Contact with and (suspected) exposure to COVID-19; Z91.030 Bee allergy status; Z88.1 Allergy status to other antibiotic agents; Z88.8 Allergy status to other drugs, medicaments and biological substances; Z87.891 Personal history of nicotine dependence

== ENCOUNTER → 2021-08-06 | Outpatient (CLI) | payer OTHER ==
[2021-08-06 07:25] LABS: BASO % 1.1 % (0.0-1.0); EOS # 0.1 10*3/uL (0.0-0.4); HEMATOCRIT 48.5 % (42.0-52.0); LYMPH # 1.4 10*3/uL (1.3-4.4); LYMPH % 38.6 % (27.0-41.0); MEAN CORPUSCULAR HGB 33.6 pg (27.0-31.0); MEAN CORPUSCULAR HGB CONC 34.6 g/dl (33.0-37.0); MEAN PLATELET VOLUME 10.2 fl (9.6-12.3); MONO # 0.3 10*3/uL (0.1-1.0); MONO % 8.4 % (3.0-9.0); NEUT # 1.8 10*3/uL (2.3-7.9); NEUT % 48.6 % (47.0-73.0); PLATELET COUNT AUTOMATED 180 10*3/uL (130-400); RED CELL DISTRI WIDTH 12.5 % (0-14.5); WHITE BLOOD COUNT 3.7 10*3/uL (4.8-10.8)
[2021-08-06 07:35] LABS: ACT PARTIAL THROMBO TIME 27.9 SECONDS (20.0-32.1)
[2021-08-06 07:53] LABS: ALKALINE PHOSPHATASE 83 U/L (45-117); BUN 13 mg/dl (7-24); CHLORIDE 111 mmol/L (98-107); CREATININE 0.94 mg/dL (0.70-1.30); POTASSIUM 3.8 mmol/L (3.5-5.1); SGOT/AST 23 IU/L (3-35); SGPT/ALT 35 U/L (12-78); SODIUM 143 mmol/L (136-145); TOTAL PROTEIN 7.8 gm/dL (6.4-8.2)
[2021-08-07 09:06] LABS: HEPATITIS B SURFACE AB Non Reactive (.); HEPATITIS B SURFACE AG Negative (Negative)
== END | disposition home or self-care (01) ==
LOC: LAB 07:03
PROVIDERS: ATTEND Specialist
DX: Z51.81 Encounter for therapeutic drug level monitoring (principal); Z72.89 Other problems related to lifestyle; Z11.59 Encounter for screening for other viral diseases; R79.89 Other specified abnormal findings of blood chemistry

== ENCOUNTER 2021-12-02 00:46 | Emergency (ER) | payer OTHER ==
[~2021-12-02] VITALS: Ht 175.2 cm; Wt 78.5 kg
== END 2021-12-02 02:20 | disposition home or self-care (01) ==
LOC: ED 00:46
DX: T78.1XXA Other adverse food reactions, not elsewhere classified, initial encounter (principal); R22.0 Localized swelling, mass and lump, head; Z91.030 Bee allergy status; Z88.1 Allergy status to other antibiotic agents; Z88.8 Allergy status to other drugs, medicaments and biological substances; Z87.891 Personal history of nicotine dependence; X58.XXXA Exposure to other specified factors, initial encounter

== ENCOUNTER 2021-12-08 02:08 | Emergency (ER) | payer OTHER ==
[~2021-12-08] VITALS: Ht 182.8 cm; Wt 81.8 kg
[2021-12-08] MEDS ORDERED: 'CLONIDINE0.1 MG PO (02:20)
[2021-12-08] MEDS ORDERED: CLONIDINE1 EAC1 TD (02:20)
[2021-12-08] MEDS ORDERED: FUROSEMIDE20 M1 PO (02:21)
[2021-12-08] MEDS ORDERED: DILT-XR240 MG PO (02:21)
== END 2021-12-08 03:30 | disposition home or self-care (01) ==
LOC: ED 02:08
DX: R09.89 Other specified symptoms and signs involving the circulatory and respiratory systems (principal); Z91.030 Bee allergy status; Z88.1 Allergy status to other antibiotic agents; Z88.8 Allergy status to other drugs, medicaments and biological substances; Z88.2 Allergy status to sulfonamides; Z79.899 Other long term (current) drug therapy; Z95.0 Presence of cardiac pacemaker; Z87.891 Personal history of nicotine dependence

== ENCOUNTER → 2022-05-02 | Outpatient (CLI) | payer OTHER ==
[~2022-05-02] MED LIST changes: +CLONIDINE1 EAC1 TD; +DILT-XR240 MG PO
[2022-05-02 07:20] LABS: BASO # 0.1 10*3/uL (0.0-0.1); EOS # 0.1 10*3/uL (0.0-0.4); EOS % 1.9 % (1.0-4.0); HEMATOCRIT 45.9 % (42.0-52.0); LYMPH # 1.3 10*3/uL (1.3-4.4); LYMPH % 27.1 % (27.0-41.0); MEAN CELL VOLUME 99.6 fl (80.0-94.0); MEAN CORPUSCULAR HGB CONC 33.1 g/dl (33.0-37.0); MONO # 0.4 10*3/uL (0.1-1.0); MONO % 8.1 % (3.0-9.0); NEUT % 61.7 % (47.0-73.0); PLATELET COUNT AUTOMATED 153 10*3/uL (130-400); RED BLOOD COUNT 4.61 10*6/uL (4.50-5.90); RED CELL DISTRI WIDTH 11.9 % (0-14.5); WHITE BLOOD COUNT 4.8 10*3/uL (4.8-10.8)
[2022-05-02 07:37] LABS: ALKALINE PHOSPHATASE 71 U/L (46-116); BUN 8 mg/dl (9-23); CHLORIDE 103 mmol/L (98-107); CHOLESTEROL 174 mg/dL (<200); LDL CHOLESTEROL 94 mg/dL (9-159); POTASSIUM 4.2 mmol/L (3.4-5.1); SGPT/ALT 27 U/L (10-49); TOTAL PROTEIN 7.2 gm/dL (6.0-8.0); TRIGLYCERIDES 84 mg/dl (<150)
== END | disposition home or self-care (01) ==
LOC: LAB 07:06
PROVIDERS: ATTEND Nurse Practitioner Family
DX: E78.5 Hyperlipidemia, unspecified (principal); I10 Essential (primary) hypertension

== ENCOUNTER → 2022-06-09 | Outpatient (CLI) | payer OTHER ==
[2022-06-09 07:39] LABS: BASO % 0.6 % (0.0-1.0); EOS # 0.1 10*3/uL (0.0-0.4); EOS % 1.3 % (1.0-4.0); HEMATOCRIT 47.7 % (42.0-52.0); LYMPH # 1.5 10*3/uL (1.3-4.4); LYMPH % 31.2 % (27.0-41.0); MEAN CELL VOLUME 96.6 fl (80.0-94.0); MEAN CORPUSCULAR HGB 32.6 pg (27.0-31.0); MEAN CORPUSCULAR HGB CONC 33.8 g/dl (33.0-37.0); MEAN PLATELET VOLUME 10.5 fl (9.6-12.3); MONO # 0.4 10*3/uL (0.1-1.0); NEUT # 2.8 10*3/uL (2.3-7.9); NEUT % 57.9 % (47.0-73.0); PLATELET COUNT AUTOMATED 166 10*3/uL (130-400); RED BLOOD COUNT 4.94 10*6/uL (4.50-5.90); RED CELL DISTRI WIDTH 11.9 % (0-14.5); WHITE BLOOD COUNT 4.8 10*3/uL (4.8-10.8)
[2022-06-09 07:49] LABS: ALKALINE PHOSPHATASE 71 U/L (46-116); BUN 10 mg/dl (9-23); CHLORIDE 106 mmol/L (98-107); POTASSIUM 4.3 mmol/L (3.4-5.1); SGPT/ALT 17 U/L (10-49); TOTAL PROTEIN 6.6 gm/dL (6.0-8.0)
[2022-06-09 08:08] LABS: ACT PARTIAL THROMBO TIME 27.6 SECONDS (20.0-32.1)
== END | disposition home or self-care (01) ==
LOC: LAB 07:04
PROVIDERS: Nurse Practitioner Family; ATTEND Internal Medicine Gastroenterology
DX: K76.0 Fatty (change of) liver, not elsewhere classified (principal); R74.01 Elevation of levels of liver transaminase levels

== ENCOUNTER → 2023-02-23 | Outpatient (CLI) | payer OTHER ==
[~2023-02-23] MED LIST changes: +MILK THISTLE175 M1 PO; +VENT7GM INH; +VITAMIN B121000 MC1 PO; +VITAMIN D325 MCG PO; +ZETIA10 MG PO; +ZINC50 M4 PO
[2023-02-23 07:27] LABS: BASO # 0.1 10*3/uL (0.0-0.1); BASO % 1.2 % (0.0-1.0); EOS # 0.1 10*3/uL (0.0-0.4); EOS % 1.4 % (1.0-4.0); HEMATOCRIT 48.2 % (42.0-52.0); LYMPH # 1.4 10*3/uL (1.3-4.4); LYMPH % 29.1 % (27.0-41.0); MEAN CORPUSCULAR HGB 33.8 pg (27.0-31.0); MEAN CORPUSCULAR HGB CONC 34.9 g/dl (33.0-37.0); MEAN PLATELET VOLUME 9.4 fl (9.6-12.3); MONO # 0.5 10*3/uL (0.1-1.0); MONO % 9.3 % (3.0-9.0); NEUT # 2.9 10*3/uL (2.3-7.9); NEUT % 58.8 % (47.0-73.0); PLATELET COUNT AUTOMATED 188 10*3/uL (130-400); RED BLOOD COUNT 4.97 10*6/uL (4.50-5.90); RED CELL DISTRI WIDTH 11.7 % (0-14.5); WHITE BLOOD COUNT 4.9 10*3/uL (4.8-10.8)
[2023-02-23 07:57] LABS: ALKALINE PHOSPHATASE 72 U/L (46-116); BUN 9 mg/dl (9-23); CHLORIDE 104 mmol/L (98-107); CHOLESTEROL 228 mg/dL (<200); LDL CHOLESTEROL 153 mg/dL (9-159); POTASSIUM 4.3 mmol/L (3.4-5.1); SGPT/ALT 30 U/L (5-49); TOTAL PROTEIN 7.4 gm/dL (6.0-8.0); TRIGLYCERIDES 74 mg/dl (<150)
== END | disposition home or self-care (01) ==
LOC: LAB 07:07
PROVIDERS: ATTEND Nurse Practitioner Family
DX: E78.5 Hyperlipidemia, unspecified (principal); I10 Essential (primary) hypertension; J30.9 Allergic rhinitis, unspecified

== ENCOUNTER 2023-05-19 18:33 | Emergency (ER) | payer OTHER ==
[~2023-05-19] VITALS: Ht 175.2 cm; Wt 72.6 kg
[2023-05-19 19:39] LABS: BASO % 1.1 % (0.0-1.0); EOS # 0.1 10*3/uL (0.0-0.4); EOS % 1.7 % (1.0-4.0); HEMATOCRIT 43.5 % (42.0-52.0); LYMPH % 27.4 % (27.0-41.0); MEAN CELL VOLUME 100.7 fl (80.0-94.0); MEAN CORPUSCULAR HGB 32.9 pg (27.0-31.0); MEAN CORPUSCULAR HGB CONC 32.6 g/dl (33.0-37.0); MEAN PLATELET VOLUME 9.9 fl (9.6-12.3); MONO # 0.4 10*3/uL (0.1-1.0); MONO % 12.5 % (3.0-9.0); NEUT % 57.3 % (47.0-73.0); PLATELET COUNT AUTOMATED 144 10*3/uL (130-400); RED BLOOD COUNT 4.32 10*6/uL (4.50-5.90); RED CELL DISTRI WIDTH 13.2 % (0-14.5); WHITE BLOOD COUNT 3.5 10*3/uL (4.8-10.8)
[2023-05-19 19:58] LABS: BUN 15 mg/dl (9-23); CHLORIDE 110 mmol/L (98-107); POTASSIUM 3.8 mmol/L (3.4-5.1)
== END 2023-05-19 20:34 | disposition home or self-care (01) ==
LOC: ED 18:33
PROVIDERS: Nurse Practitioner Family
DX: B34.9 Viral infection, unspecified (principal); Z20.822 Contact with and (suspected) exposure to COVID-19; R73.9 Hyperglycemia, unspecified; E83.41 Hypermagnesemia; I10 Essential (primary) hypertension; M10.9 Gout, unspecified; E78.00 Pure hypercholesterolemia, unspecified; Z91.030 Bee allergy status; Z88.1 Allergy status to other antibiotic agents; Z88.2 Allergy status to sulfonamides; Z88.8 Allergy status to other drugs, medicaments and biological substances; Z98.890 Other specified postprocedural states; Z87.891 Personal history of nicotine dependence

== ENCOUNTER → 2023-05-29 | Outpatient (CLI) | payer OTHER ==
[2023-05-29 07:18] LABS: BASO % 0.8 % (0.0-1.0); EOS # 0.1 10*3/uL (0.0-0.4); EOS % 1.3 % (1.0-4.0); HEMATOCRIT 49.1 % (42.0-52.0); LYMPH # 1.6 10*3/uL (1.3-4.4); LYMPH % 41.6 % (27.0-41.0); MEAN CELL VOLUME 98.4 fl (80.0-94.0); MEAN CORPUSCULAR HGB 32.5 pg (27.0-31.0); MEAN PLATELET VOLUME 9.5 fl (9.6-12.3); MONO # 0.4 10*3/uL (0.1-1.0); MONO % 9.3 % (3.0-9.0); NEUT # 1.8 10*3/uL (2.3-7.9); NEUT % 46.7 % (47.0-73.0); PLATELET COUNT AUTOMATED 208 10*3/uL (130-400); RED BLOOD COUNT 4.99 10*6/uL (4.50-5.90); RED CELL DISTRI WIDTH 12.3 % (0-14.5); WHITE BLOOD COUNT 3.8 10*3/uL (4.8-10.8)
[2023-05-29 08:02] LABS: ALKALINE PHOSPHATASE 61 U/L (46-116); BUN 10 mg/dl (9-23); CHLORIDE 105 mmol/L (98-107); CHOLESTEROL 210 mg/dL (<200); LDL CHOLESTEROL 129 mg/dL (9-159); POTASSIUM 4.2 mmol/L (3.4-5.1); SGPT/ALT 32 U/L (5-49); TOTAL PROTEIN 7.5 gm/dL (6.0-8.0); TRIGLYCERIDES 135 mg/dl (<150)
== END | disposition home or self-care (01) ==
LOC: LAB 07:01
PROVIDERS: ATTEND Nurse Practitioner Family
DX: I10 Essential (primary) hypertension (principal); R73.01 Impaired fasting glucose; E78.5 Hyperlipidemia, unspecified; J30.9 Allergic rhinitis, unspecified

== ENCOUNTER → 2023-07-07 | Outpatient (CLI) | payer OTHER ==
[2023-07-07 07:24] LABS: BASO % 0.9 % (0.0-1.0); EOS # 0.1 10*3/uL (0.0-0.4); EOS % 1.3 % (1.0-4.0); LYMPH # 1.2 10*3/uL (1.3-4.4); LYMPH % 25.7 % (27.0-41.0); MEAN CORPUSCULAR HGB 32.6 pg (27.0-31.0); MEAN CORPUSCULAR HGB CONC 32.9 g/dl (33.0-37.0); MEAN PLATELET VOLUME 9.7 fl (9.6-12.3); MONO # 0.4 10*3/uL (0.1-1.0); MONO % 8.3 % (3.0-9.0); NEUT # 2.8 10*3/uL (2.3-7.9); NEUT % 63.6 % (47.0-73.0); PLATELET COUNT AUTOMATED 129 10*3/uL (130-400); RED BLOOD COUNT 4.85 10*6/uL (4.50-5.90); RED CELL DISTRI WIDTH 12.5 % (0-14.5); WHITE BLOOD COUNT 4.5 10*3/uL (4.8-10.8)
[2023-07-07 07:32] LABS: ACT PARTIAL THROMBO TIME 29.5 SECONDS (20.0-32.1)
[2023-07-07 07:45] LABS: ALKALINE PHOSPHATASE 72 U/L (46-116); BUN 11 mg/dl (9-23); CHLORIDE 104 mmol/L (98-107); POTASSIUM 4.1 mmol/L (3.4-5.1); SGPT/ALT 103 U/L (5-49); TOTAL PROTEIN 7.8 gm/dL (6.0-8.0)
== END ==
LOC: LAB 07:07
PROVIDERS: ATTEND Nurse Practitioner Family
DX: K76.0 Fatty (change of) liver, not elsewhere classified (principal); R79.89 Other specified abnormal findings of blood chemistry

== ENCOUNTER → 2023-08-11 | Outpatient (CLI) | payer OTHER | END | disposition home or self-care (01) | LOC: CT 01:48 | PROVIDERS: ATTEND Psychiatry & Neurology Neurology | DX: R56.9 Unspecified convulsions (principal); Z86.79 Personal history of other diseases of the circulatory system ==

== ENCOUNTER → 2023-09-08 | Outpatient (CLI) | payer OTHER ==
[2023-09-08 07:30] LABS: EOS # 0.1 10*3/uL (0.0-0.4); EOS % 3.3 % (1.0-4.0); HEMATOCRIT 44.6 % (42.0-52.0); LYMPH # 1.3 10*3/uL (1.3-4.4); LYMPH % 32.3 % (27.0-41.0); MEAN CORPUSCULAR HGB 33.2 pg (27.0-31.0); MEAN CORPUSCULAR HGB CONC 33.2 g/dl (33.0-37.0); MONO # 0.5 10*3/uL (0.1-1.0); MONO % 11.5 % (3.0-9.0); NEUT # 2.1 10*3/uL (2.3-7.9); NEUT % 51.9 % (47.0-73.0); PLATELET COUNT AUTOMATED 157 10*3/uL (130-400); RED BLOOD COUNT 4.46 10*6/uL (4.50-5.90); RED CELL DISTRI WIDTH 12.7 % (0-14.5)
[2023-09-08 07:50] LABS: ALKALINE PHOSPHATASE 69 U/L (46-116); BUN 10 mg/dl (9-23); CHLORIDE 107 mmol/L (98-107); POTASSIUM 3.9 mmol/L (3.4-5.1); SGPT/ALT 58 U/L (5-49)
[2023-09-10 12:07] LABS: ANTI-SMOOTH MUSCLE ANTIBODY 8 Units (0-19)
== END | disposition home or self-care (01) ==
LOC: LAB 07:11
PROVIDERS: ATTEND Nurse Practitioner Family
DX: K76.0 Fatty (change of) liver, not elsewhere classified (principal); R74.01 Elevation of levels of liver transaminase levels

== ENCOUNTER → 2023-12-05 | Outpatient (CLI) | payer OTHER ==
[2023-12-05 07:37] LABS: BASO % 0.7 % (0.0-1.0); EOS # 0.1 10*3/uL (0.0-0.4); EOS % 1.3 % (1.0-4.0); LYMPH # 1.2 10*3/uL (1.3-4.4); LYMPH % 26.7 % (27.0-41.0); MEAN CELL VOLUME 99.2 fl (80.0-94.0); MEAN CORPUSCULAR HGB 32.7 pg (27.0-31.0); MEAN PLATELET VOLUME 9.6 fl (9.6-12.3); MONO # 0.4 10*3/uL (0.1-1.0); MONO % 9.4 % (3.0-9.0); NEUT # 2.7 10*3/uL (2.3-7.9); NEUT % 61.7 % (47.0-73.0); PLATELET COUNT AUTOMATED 157 10*3/uL (130-400); RED BLOOD COUNT 4.74 10*6/uL (4.50-5.90); RED CELL DISTRI WIDTH 12.7 % (0-14.5); WHITE BLOOD COUNT 4.5 10*3/uL (4.8-10.8)
[2023-12-05 08:10] LABS: ALKALINE PHOSPHATASE 66 U/L (46-116); BUN 11 mg/dl (9-23); CHLORIDE 104 mmol/L (98-107); CHOLESTEROL 257 mg/dL (<200); LDL CHOLESTEROL 163 mg/dL (9-159); SGPT/ALT 60 U/L (5-49); TOTAL PROTEIN 7.3 gm/dL (6.0-8.0); TRIGLYCERIDES 93 mg/dl (<150)
== END | disposition home or self-care (01) ==
LOC: LAB 07:02
PROVIDERS: ATTEND Nurse Practitioner Family
DX: I10 Essential (primary) hypertension (principal); E78.5 Hyperlipidemia, unspecified; R51.9 Headache, unspecified; Z79.899 Other long term (current) drug therapy

== ENCOUNTER → 2024-02-13 | Outpatient (CLI) | payer OTHER ==
[2024-02-13 08:01] LABS: ALKALINE PHOSPHATASE 65 U/L (46-116); BUN 9 mg/dl (9-23); CHLORIDE 103 mmol/L (98-107); POTASSIUM 4.2 mmol/L (3.4-5.1); SGPT/ALT 35 U/L (5-49); TOTAL PROTEIN 7.2 gm/dL (6.0-8.0)
== END | disposition home or self-care (01) ==
LOC: LAB 07:07
PROVIDERS: ATTEND Internal Medicine Gastroenterology
DX: R79.89 Other specified abnormal findings of blood chemistry (principal)

== ENCOUNTER → 2024-04-05 | Outpatient (CLI) | payer OTHER ==
[2024-04-05 07:32] LABS: EOS # 0.1 10*3/uL (0.0-0.4); EOS % 1.2 % (1.0-4.0); MEAN CELL VOLUME 97.1 fl (80.0-94.0); MEAN CORPUSCULAR HGB 32.4 pg (27.0-31.0); MEAN CORPUSCULAR HGB CONC 33.4 g/dl (33.0-37.0); MEAN PLATELET VOLUME 9.8 fl (9.6-12.3); MONO # 0.4 10*3/uL (0.1-1.0); MONO % 8.6 % (3.0-9.0); NEUT # 2.8 10*3/uL (2.3-7.9); NEUT % 66.7 % (47.0-73.0); PLATELET COUNT AUTOMATED 176 10*3/uL (130-400); RED BLOOD COUNT 4.84 10*6/uL (4.50-5.90); RED CELL DISTRI WIDTH 12.4 % (0-14.5); WHITE BLOOD COUNT 4.2 10*3/uL (4.8-10.8)
[2024-04-05 08:03] LABS: ALKALINE PHOSPHATASE 67 U/L (46-116); BUN 14 mg/dl (9-23); CHLORIDE 104 mmol/L (98-107); SGPT/ALT 64 U/L (5-49); TOTAL PROTEIN 7.5 gm/dL (6.0-8.0)
[2024-04-05 08:33] LABS: VITAMIN D, 25-HYDROXY 78.5 ng/mL (30-100)
[2024-04-07 13:06] LABS: ANTI-DSDNA ANTIBODIES <1 IU/mL (0-9); ANTI-RNP ANTIBODIES <0.2 AI (0.0-0.9); ANTICHROMATIN ANTIBODIES <0.2 AI (0.0-0.9); ANTISCLERODERMA-70 AB <0.2 AI (0.0-0.9)
== END | disposition home or self-care (01) ==
LOC: LAB 04-04 07:07
PROVIDERS: ATTEND Nurse Practitioner Family
DX: Z13.29 Encounter for screening for other suspected endocrine disorder (principal); E78.00 Pure hypercholesterolemia, unspecified; I10 Essential (primary) hypertension; J45.909 Unspecified asthma, uncomplicated; M25.50 Pain in unspecified joint

== ENCOUNTER → 2024-07-02 | Outpatient (CLI) | payer OTHER | END | disposition home or self-care (01) | LOC: RAD 08:49 | PROVIDERS: ATTEND Nurse Practitioner Family | DX: M17.12 Unilateral primary osteoarthritis, left knee (principal); M25.562 Pain in left knee; G89.29 Other chronic pain ==

== ENCOUNTER 2024-09-07 09:25 | Emergency (ER) | payer OTHER ==
[~2024-09-07] VITALS: Ht 175.2 cm; Wt 70.3 kg
[2024-09-07 10:08] LABS: BASO % 0.5 % (0.0-1.0); EOS % 0.1 % (1.0-4.0); HEMATOCRIT 43.2 % (42.0-52.0); MEAN CELL VOLUME 98.9 fl (80.0-94.0); MEAN CORPUSCULAR HGB 32.7 pg (27.0-31.0); MEAN CORPUSCULAR HGB CONC 33.1 g/dl (33.0-37.0); MEAN PLATELET VOLUME 9.2 fl (9.6-12.3); MONO # 0.7 10*3/uL (0.1-1.0); MONO % 9.4 % (3.0-9.0); NEUT # 5.4 10*3/uL (2.3-7.9); NEUT % 72.7 % (47.0-73.0); PLATELET COUNT AUTOMATED 145 10*3/uL (130-400); RED BLOOD COUNT 4.37 10*6/uL (4.50-5.90); RED CELL DISTRI WIDTH 13.2 % (0-14.5); WHITE BLOOD COUNT 7.4 10*3/uL (4.8-10.8)
[2024-09-07 10:28] LABS: BUN 11 mg/dl (9-23); CHLORIDE 107 mmol/L (98-107); POTASSIUM 3.7 mmol/L (3.4-5.1)
[2024-09-07] MEDS ORDERED: MEDROL DOSEPAK4 MG PO (11:41)
== END 2024-09-07 11:58 | disposition home or self-care (01) ==
LOC: ED 09:25
PROVIDERS: Internal Medicine
DX: B34.9 Viral infection, unspecified (principal); Z91.030 Bee allergy status; Z88.1 Allergy status to other antibiotic agents; Z88.8 Allergy status to other drugs, medicaments and biological substances; Z88.2 Allergy status to sulfonamides; Z79.899 Other long term (current) drug therapy; Z95.0 Presence of cardiac pacemaker; Z87.891 Personal history of nicotine dependence

== ENCOUNTER → 2024-10-01 | Outpatient (CLI) | payer OTHER ==
[2024-10-01 07:48] LABS: BASO # 0.0 10*3/uL (0.0-0.1); BASO % 0.5 % (0.0-1.0); EOS # 0.1 10*3/uL (0.0-0.4); EOS % 0.7 % (1.0-4.0); MEAN CELL VOLUME 99.8 fl (80.0-94.0); MEAN CORPUSCULAR HGB 32.7 pg (27.0-31.0); MEAN PLATELET VOLUME 9.5 fl (9.6-12.3); MONO # 0.5 10*3/uL (0.1-1.0); MONO % 6.2 % (3.0-9.0); NEUT # 7.0 10*3/uL (2.3-7.9); NEUT % 81.1 % (47.0-73.0); NUCLEATED RED BLOOD CELL 0.0 % (0.0-0.0); NUCLEATED RED BLOOD CELL 0.0 10*3/uL (0.0-0.0); PLATELET COUNT AUTOMATED 152 10*3/uL (130-400); RED CELL DISTRI WIDTH 12.8 % (0-14.5)
[2024-10-01 08:39] LABS: BUN 10 mg/dl (9-23); SGPT/ALT 68 U/L (5-49)
[2024-10-01 12:56] LABS: LDL CHOLESTEROL 170 mg/dL (9-159)
== END | disposition home or self-care (01) ==
LOC: LAB 07:21
PROVIDERS: ATTEND Nurse Practitioner Family
DX: I10 Essential (primary) hypertension (principal); E78.00 Pure hypercholesterolemia, unspecified; J45.909 Unspecified asthma, uncomplicated; R74.8 Abnormal levels of other serum enzymes; R73.01 Impaired fasting glucose

== ENCOUNTER → 2024-10-08 | Outpatient (CLI) | payer OTHER | END | disposition home or self-care (01) | LOC: LAB 12:59 | PROVIDERS: ATTEND Nurse Practitioner Family | DX: I10 Essential (primary) hypertension (principal); J30.9 Allergic rhinitis, unspecified; J45.909 Unspecified asthma, uncomplicated; R74.8 Abnormal levels of other serum enzymes; R73.01 Impaired fasting glucose; E78.00 Pure hypercholesterolemia, unspecified; Z12.5 Encounter for screening for malignant neoplasm of prostate; Z00.00 Encounter for general adult medical examination without abnormal findings; F10.10 Alcohol abuse, uncomplicated; Z91.030 Bee allergy status ==

== ENCOUNTER 2024-12-04 08:22 | Emergency (ER) | payer OTHER, MEDICAID ==
[~2024-12-04] VITALS: Ht 175.2 cm; Wt 70.3 kg
[2024-12-04] MEDS ORDERED: IBUPROFEN 600 MG TAB PO ONE (08:40)
== END 2024-12-04 09:13 | disposition home or self-care (01) ==
LOC: ED 08:22
DX: S92.411A Displaced fracture of proximal phalanx of right great toe, initial encounter for closed fracture (principal); S92.311A Displaced fracture of first metatarsal bone, right foot, initial encounter for closed fracture; Z91.030 Bee allergy status; Z88.1 Allergy status to other antibiotic agents; Z88.8 Allergy status to other drugs, medicaments and biological substances; Z88.2 Allergy status to sulfonamides; Z79.899 Other long term (current) drug therapy; Z95.0 Presence of cardiac pacemaker; Z87.891 Personal history of nicotine dependence; W21.89XA Striking against or struck by other sports equipment, initial encounter; Y93.89 Activity, other specified; Y92.89 Other specified places as the place of occurrence of the external cause; Y99.8 Other external cause status

== ENCOUNTER → 2024-12-24 | Outpatient (CLI) | payer OTHER, MEDICAID | END | disposition home or self-care (01) | LOC: ORTHO 01:43 | PROVIDERS: ATTEND Orthopaedic Surgery | DX: S92.414D Nondisplaced fracture of proximal phalanx of right great toe, subsequent encounter for fracture with routine healing (principal); M19.071 Primary osteoarthritis, right ankle and foot; X58.XXXD Exposure to other specified factors, subsequent encounter ==